=== PATIENT | male | born 1980 | race Caucasian/White ===

== ENCOUNTER 2024-07-21 12:13 | Emergency (ER) | payer BC, SELFPAY ==
--- NOTE | ~2024-07-21 | CT_ITS ---
EXAMINATION: CT ABDOMEN AND PELVIS WITHOUT CONTRAST CLINICAL INFORMATION: Right-sided abdominal pain. COMPARISON: No similar priors are available for comparison at the moment of this dictation. TECHNIQUE: Multidetector volumetric imaging was performed from the superior aspect of the liver through the pubic symphysis. Sagittal and coronal reformatted images were obtained on the technologist's workstation. This CT examination was performed using dose optimization techniques as appropriate, variously including the following: *Automated exposure control *Adjustment of mA and/or kV according to patient size (this includes techniques or standardized protocols for targeted exams where dose is matched to indication/reason for exam; i.e. extremities or head) *Use of iterative reconstruction technique DLP: 716 mGy-cm FINDINGS: The lack of intravenous contrast limits evaluation of the solid visceral organs including the liver, spleen, pancreas, and kidneys. LUNG BASES: Left lower lobe calcified granuloma. No focal consolidation or pleural effusion. LIVER, GALLBLADDER, AND BILIARY TREE: The liver is normal in size, shape, and attenuation. No focal hepatic lesion or biliary ductal dilatation is present. Cholecystectomy. PANCREAS: Unremarkable. SPLEEN: Enlarged measuring 14 cm craniocaudally. ADRENAL GLANDS: Unremarkable. KIDNEYS AND URETERS: There is a 5 mm calculus in the right ureter at the level of L4-L5 without significant upstream hydroureteronephrosis. At least 4 additional nonobstructive calculi are seen in the right kidney largest measuring 6 mm in the lower pole. Normal left kidney. BLADDER: Unremarkable. GASTROINTESTINAL TRACT: The stomach and small bowel are nondilated. Normal appendix. Colonic diverticulosis without significant pericolonic inflammatory changes. ABDOMINAL WALL: No significant hernia is appreciated. LYMPH NODES: No lymphadenopathy. VASCULAR: Normal caliber abdominal aorta. PELVIC VISCERA: Prostate gland calcifications as well as calcifications of the vas deferens, the latter that could be associated with diabetes. OSSEOUS STRUCTURES: Moderate degenerative changes L4-L5 and L5-S1. No acute or aggressive appearing osseous findings. CT/CT abdomen pelvis wo IV con IMPRESSION: 1. There is a 5 mm calculus in the right ureter at the level of L4-L5 without significant upstream hydroureteronephrosis. 2. At least 4 additional nonobstructive calculi are seen in the right kidney. 3. Splenomegaly. 4. Colonic diverticulosis without evidence of acute diverticulitis. Electronically signed by: Kate Cutler MD 07/21/2024 03:00 PM EDT
--- NOTE | 2024-07-21 12:19 | ED.ABDPAIN ---
HPI - Abdominal Pain General Chief Complaint: Abdominal Pain Stated Complaint: Ruptured appendix? sent by urgent care Time Seen by Provider: 07/21/24 12:41 Source: patient Mode of arrival: ambulatory Limitations: no limitations History of Present Illness ED Provider: DR. Espinal HPI narrative: This is a 43-year-old male came in from a walk-in urgent care for evaluation of right lower quadrant abdominal pain for 3 weeks, patient has been waning and waxing for 3 weeks, started in the right mid abdomen, feeling nauseous but no vomiting, normal bowel movement last bowel movement was this morning, passing flatus, no dysuria, no frequency urination, no blood in the urine, seen at the walk-in clinic today were concern of appendicitis /rupture appendicitis. history cholecystectomy. Related Data Previous Rx's ?Medication ?Instructions ?Recorded naproxen 500 mg tablet 500 mg PO BID PRN pain #14 tabs 07/21/24 prednisone 20 mg tablet 20 mg PO BID #10 tabs 07/21/24 tamsulosin 0.4 mg capsule (Flomax) 0.4 mg PO BEDTIME #6 caps 07/21/24 Allergies Allergy/AdvReac Type Severity Reaction Status Date / Time No Known Allergies Allergy Verified 07/21/24 12:28 Review of Systems Review of Systems All other systems are reviewed and are negative Constitutional: Reports as per HPI and Reports no additional constitutional complaints Eyes: Reports as per HPI and Reports no additional eye complaints Reports system reviewed and no additional complaints, except as documented Cardiovascular: Reports as per HPI and Reports no additional cardiovascular complaints Respiratory: Reports as per HPI and Reports no additional respiratory complaints Gastrointestinal: Reports as per HPI and Reports no additional gastrointestinal complaints Genitourinary: Reports no additional female genitourinary complaints Musculoskeletal: Reports no additional musculoskeletal complaints Skin/Breast: Reports system reviewed and no additional complaints, except as docu Psychiatric: Reports no additional psychiatric complaints Endocrine: Reports no additional endocrine complaints Hematologic/Lymphatic: Reports no additional hematologic/lymphatic complaints Allergic/Immunologic: Reports no additional allergic/immunologic complaints Reports system reviewed and no additional complaints, except as documented and Reports Abnormal speech present [facility] Social History Social History Smoked in Last 30 Days: No Use of substances other than those prescribed or required for medical reasons: No Advance Directives: No Advance Directives Information Provided: Yes Physical Exam ED Vital Signs: Vital Signs - 24 hr 07/21/24 12:24 07/21/24 14:12 Temperature 98.3 F 97.8 F Pulse Rate 78 68 Respiratory Rate 16 16 Blood Pressure 134/88 116/72 Pulse Oximetry 98 96 Oxygen Delivery Method Room Air Room Air BMI result Body Mass Index 30.3 Appearance: Alert. Oriented X3. No acute distress. Head: Normal external exam. Normocephalic. Atraumatic. No Rosa signs noted. No raccoon eyes noted Eyes: PERRLA. EOMI. Conjunctiva and sclera normal. Eyelids normal. ENT: TM's Normal. Pharynx normal. Uvula midline. Moist mucous membranes. No trismus noted. No drooling noted. No muffled voice noted. Neck: Normal inspection. Neck supple. FROM. No adenopathy. Thyroid Normal. No meningeal signs. No neck mass noted. CVS: Normal heart rate and rhythm. Heart sound normal. No murmurs noted. Pulses normal throughout. Respiratory: No respiratory distress. Painless inspiration. Breath sounds normal. No wheezes/rales/rhonchi noted. Chest nontender. No accessory muscle usage noted or decreased air movement noted. Abdomen: Soft , mild right-sided abdominal tenderness, no rebound tenderness. Bowel sounds normal in all 4 quadrants. No distention noted. No organomegaly noted. No visible injury noted. Back: mild R CVA tenderness. Full range of motion noted. Skin: Skin warm and dry. Normal skin color. Normal skin turgor. No rashes/lesions/lacerations noted. Extremities: No lower extremity edema. Extremities exhibit normal range of motion. Extremities nontender. Neuro: Oriented X 3. Cranial nerve exam: II-XII are grossly intact No motor deficit. No sensory deficit. Reflexes normal. Course Course Course Narrative: This is a Rapid Medical Examination (RME) performed by Jennifer Hickey PA-C in triage. Full HPI, ROS, assessment and treatment plan per primary provider in the Main ED. 43 yo male here from [facility] for eval of RUQ/ right flank pain x3 weeks. states that while seated at the [employer] 3 wks ago he had acute onset severe RUQ pain, nausea and diaphoresis. went home and vomited for 2 hours. since this time has had a dull aching sensation to RUQ w/ assoc nausea and decreased appetite. pain not worse w/ eating. hx of cholecystectomy 7-8 hrs ago. hx of renal stones, states this feels similar. denies fever/chills. I received an expect from UC today - [employer] reported positive mcburney point tenderness, UA negative. not tested for STIs. sent here for concern of ruptured appendix 3 wks ago. + well appearing. abd is obese, ttp of RUQ with voluntary guarding. no ttp of RLQ, no mcburney point tenderness. Plan: labs, UA, +/- imaging deferred to primary provider Reevaluation(s) Reevaluation #1: Patient has been comfortable while in the emergency department, CT abdomen and pelvis showing 5 mm right ureteric stone, will start the patient on NSAIDs, Flomax, prednisone and follow-up with urology. Time: 15:13 Medical Decision Making Differential Diagnosis Differential Diagnoses: The differential diagnosis associated with the presentation includes ( Acute appendicitis, obstructive uropathy, UTI, pyelonephritis, colitis, acute diverticulitis, electrolyte derangement, severe anemia , pancreatitis, bowel obstruction.) Admission/Observation Consideration of admission/observation: Escalation of care including admission/observation considered Lab Data MDM Lab Attestation statement: I reviewed the patient's lab results. 07/21/24 12:34 07/21/24 12:34 Labs: Lab Results 07/21/24 07/21/24 Range/Units 12:34 12:53 WBC 6.7 (4.8-10.8) X10*3/uL RBC 4.96 (4.60-5.80) X10*6/uL Hgb 15.2 (14.0-18.0) g/dl Hct 43.7 (42.0-52.0) % MCV 88.1 (80.0-98.0) fL MCH 30.6 (27.0-33.0) pg MCHC 34.8 (31.0-36.0) g/dl RDW 12.2 (11.0-16.0) % Plt Count 144 L (160-400) X10*3/uL MPV 9.1 L (9.4-12.4) fL Immature Gran % (Auto) 0.3 (0.0-0.4) % Neut % (Auto) 65.7 (45-73) % Lymph % (Auto) 22.0 (20-40) % [place] % (Auto) 8.3 (2-11) % Eos % (Auto) 3.3 (0-4) % Baso % (Auto) 0.4 (0-2) % Lymph # (Auto) 1.5 (1.2-4.9) X10*3/uL [place] # (Auto) 0.6 (0.1-1.2) X10*3/uL Eos # (Auto) 0.2 (0.0-0.4) X10*3/uL Baso # (Auto) 0.0 (0.0-0.2) X10*3/uL Abs Immat Gran (auto) 0.02 (0.00-0.03) X10*3/uL Absolute Neuts (auto) 4.4 (2.0-8.3) x10*3/uL Absolute Nucleated RBC 0.000 (0.0-0.012) X10*3/uL Nucleated RBC % (auto) 0.0 (0.0-0.2) /100WBC ESR 2 (0-15) MM/HR Sodium 143 (135-145) mmol/L Potassium 4.0 (3.3-5.1) mmol/L Chloride 110 H (96-108) mmol/L Carbon Dioxide 27 (22-29) mmol/L Anion Gap 10 L (12-20) BUN 16 (9-16) mg/dL Creatinine 0.94 (0.5-1.4) mg/dL Estim Creat Clear Calc 122.4 Estimated GFR > 60 Random Glucose 101 (60-115) mg/dL Calcium 9.3 (8.4-10.2) mg/dL Magnesium 1.9 (1.6-2.6) mg/dL Total Bilirubin 1.0 (0.0-1.0) mg/dL AST 20 (5-37) U/L ALT 22 (0-40) U/L Alkaline Phosphatase 81 (39-117) U/L C-Reactive Protein 0.17 (< or = 0.50) mg/dL Total Protein 6.0 L (6.5-8.0) g/dL Albumin 4.1 (3.5-5.0) g/dL Lipase 35 (8-78) U/L Urine Color Yellow Urine Appearance Clear Urine pH 6.0 (5.0-9.0) Ur Specific Viola >= 1.030 H (1.005-1.025) Urine Protein Negative (Neg-Trace) mg/dL Urine Glucose (UA) Negative (Negative) mg/dL Urine Ketones Negative (Negative) mg/dL Urine Blood Negative (Negative) Urine Nitrite Negative (Negative) Ur Leukocyte Esterase Negative (Negative) Independent Interpretation I performed an independent interpretation of an: CT Scan (1. There is a 5 mm calculus in the right ureter at the level of L4-L5 without significant upstream hydroureteronephrosis. 2. At least 4 additional nonobstructive calculi are seen in the right kidney. 3. Splenomegaly. 4. Colonic diverticulosis without evidence of acute diverticulitis. ) Radiology Impression Discussion of test interpretation with radiology: I have reviewed the radiologist's reading. Discharge Plan Discharge Clinical Impression: Right ureteral stone Patient Disposition: Home, Self-Care Instructions: Ureteral Stones (ED) Prescriptions: New naproxen 500 mg tablet 500 mg PO BID PRN (Reason: pain) Qty: 14 0RF tamsulosin [Flomax] 0.4 mg capsule 0.4 mg PO BEDTIME Qty: 6 0RF prednisone 20 mg tablet 20 mg PO BID Qty: 10 0RF Referrals: David Guadarrama MD [Physician] - Leslie Lomeli MD [Primary Care Provider] - Print Language: [place] Citizen
[2024-07-21 12:24] VITALS: BP 134/88; PULSE 78; RESP 16; TEMP 36.8; O2SAT 98; BMI 30.3
[2024-07-21 12:38] LABS: MANUAL DIFF FLAG NO
[2024-07-21 12:40] LABS: Basophils Percent Auto 0.4 % (0-2); Eosinophils Absolute Auto 0.2 X10*3/uL (0.0-0.4); Eosinophils Percent Auto 3.3 % (0-4); Hematocrit 43.7 % (42.0-52.0); Hemoglobin 15.2 g/dl (14.0-18.0); Imm Gran Abs Auto 0.02 X10*3/uL (0.00-0.03); Imm Gran Pct Auto 0.3 % (0.0-0.4); Lymphocytes Absolute Auto 1.5 X10*3/uL (1.2-4.9); Mean Corpuscular HGB Conc 34.8 g/dl (31.0-36.0); Mean Corpuscular Hemoglobin 30.6 pg (27.0-33.0); Mean Corpuscular Volume 88.1 fL (80.0-98.0); Mean Platelet Volume 9.1 fL (9.4-12.4); Monocytes Absolute Auto 0.6 X10*3/uL (0.1-1.2); Monocytes Percent Auto 8.3 % (2-11); Neutrophils Absolute Auto 4.4 x10*3/uL (2.0-8.3); Neutrophils Percent Auto 65.7 % (45-73); Platelet Count 144 X10*3/uL (160-400); Red Blood Count 4.96 X10*6/uL (4.60-5.80); Red Cell Distribution Width 12.2 % (11.0-16.0); White Blood Count 6.7 X10*3/uL (4.8-10.8)
[2024-07-21 12:52] LABS: Alanine Aminotransferase 22 U/L (0-40); Albumin Level 4.1 g/dL (3.5-5.0); Alkaline Phosphatase 81 U/L (39-117); Anion Gap 10 (12-20); Aspartate Amino Transferase 20 U/L (5-37); Blood Urea Nitrogen 16 mg/dL (9-16); C Reactive Protein 0.17 mg/dL (< or = 0.50); Calcium 9.3 mg/dL (8.4-10.2); Carbon Dioxide 27 mmol/L (22-29); Chloride 110 mmol/L (96-108); Creatinine Clr Calc Pharmacy 122.4; Estimated Glomerular Filt Rate > 60; Glucose Random 101 mg/dL (60-115); Lipase 35 U/L (8-78); Magnesium 1.9 mg/dL (1.6-2.6); Sodium 143 mmol/L (135-145)
[2024-07-21 12:59] LABS: Appearance Urine Clear; Color Urine Yellow; Glucose Urine UA Negative (Negative); Leukocyte Esterase Urine Negative (Negative); Nitrite Urine Negative (Negative); Specific Gravity - Urine >= 1.030 (1.005-1.025); Urine Blood Negative (Negative); Urine Ketones Negative (Negative); Urine Protein Negative (Neg-Trace)
[2024-07-21 13:19] LABS: Erythrocyte Sedimentation Rate 2 MM/HR (0-15)
[2024-07-21 14:12] VITALS: BP 116/72; PULSE 68; RESP 16; TEMP 36.6; O2SAT 96
[2024-07-21 15:36] VITALS: BP 142/78; PULSE 76; RESP 17; TEMP 36.6; O2SAT 8
== END 2024-07-21 15:37 | disposition home or self-care (01) ==
PROVIDERS: Physician Assistant Medical; Emergency Provider Emergency Medicine; PCP Internal Medicine
DX: R10.31 Right lower quadrant pain (principal); R11.0 Nausea; Z79.899 Other long term (current) drug therapy
CPT/HCPCS: 36415; 74176; 80053; 81003; 83690; 83735; 85025; 85652; 86140; 99284

== ENCOUNTER 2024-09-11 09:01 | Outpatient (AMB) | payer BC, SELFPAY ==
--- NOTE | 2024-09-11 09:03 | A.OFFVIS_ITS ---
Intake Visit Reasons: kidney stones Intake Note: New Patient presents for initial visit for kidney stones Urology Medications: none Blood Thinner: none Print Line Operator Required: No Accompanied by: Self / Same As Patient Allergies No Known Allergies Allergy (Verified 09/11/24 09:28) Medication List - Last Reconciled 09/11/24 by HAWK Galindo fexofenadine (Ghada Allergy) 180 mg PO DAILY HPI Comments Details: Pawel is a very pleasant 43-year-old male patient of Dr. Lomeli. He has a past medical history of allergies. He presents to the office today as a new patient for nephrolithiasis. In discussion with the patient today he reports having seeked emergency room care services a proximally 2 months ago for right-sided abdominal pain he had been experiencing at which time a CT was ordered and recommendations were made for urology referral for further assessment evaluation. These results were reviewed with the patient today. CT 07/25 there is a 5 mm calculus in the right ureter at the level of L4-L5 without significant upstream hydroureteronephrosis. At least 4 additional nonobstructive calculi are seen in the right kidney largest measuring 6 mm in the lower pole. Normal left kidney. The bladder is unremarkable. When asked he does report a previous history of nephrolithiasis in the past however never requiring surgical intervention. When asked he otherwise denies any bothersome urinary issues. He denies urinary urgency, urinary frequency, incontinence, nocturia, hematuria, dysuria, foul smelling urine, changes to urinary stream, flank pain, fever, and or chills. He is happy with his current voiding parameters. He reports sharp pain he had been experiencing has subsided however he does continue with intermittent right-sided flank pain. He is on sure as to if he passed stone and or fragments. We discussed obtaining further imaging for further assessment evaluation. In office urinalysis results reviewed with the patient today. 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 He otherwise offers no other issues or concerns at this time. Review of Systems Const All systems reviewed & are unremarkable except as noted in HPI and below Physical Exam Const General: cooperative, healthy appearing, comfortable, no acute distress, well developed, alert and awake Orientation/consciousness: patient oriented x3 Limitations: no limitations HEENT Head: Yes normal to inspection, Yes normocephalic and Yes atraumatic Ears: hearing grossly normal bilaterally Eyes General: appearance normal, both eyes and all related structures Neck Neck: Yes normal visual inspection and Yes trachea midline Chest Chest palpation & inspection: normal inspection of the chest Resp Effort & Inspection: normal respiratory effort and able to speak in complete sentences Cardio Rate: regular rate GI Inspection: Yes normal to inspection General: Yes no CVA tenderness Back/Spine/Pelvis Back: no CVA tenderness Skin General skin exam: no rashes or lesions noted Neuro General: patient oriented x3 Extrem General: Yes normal to inspection Psych Appearance: grossly normal and well kempt Mental Status: mental status grossly normal Speech and movement: Normal speech and movement present and Clear speech present Affect: normal affect Attitude: cooperative Thought process: Normal thought process present Thought content: Normal thought content present Insight: Fair insight present (Psych) Judgement: Fair judgement present (Psych) Results AMB Urinalysis, Automated UA Leukoctes 0 John/uL Last Edit by [employer] on 09/11/24 09:15 UA Nitrite Last Edit by [employer] on 09/11/24 09:15 UA Urobilinogen 0.2 mg/dL Last Edit by [employer] on 09/11/24 09:15 UA Protein 0 mg/dL Last Edit by [employer] on 09/11/24 09:15 UA pH 6.0 Last Edit by [employer] on 09/11/24 09:15 UA Blood 0 Parker/uL Last Edit by [employer] on 09/11/24 09:15 UA Specific [place] 1.015 Last Edit by [employer] on 09/11/24 09:15 UA Ketone Negative Last Edit by [employer] on 09/11/24 09:15 UA Bilirubin 0 mg/dL Last Edit by [employer] on 09/11/24 09:15 UA Glucose 0 mg/dL Last Edit by Jaelyn Osullivan on 09/11/24 09:15 Results Reviewed Results Reviewed: Laboratory Last Values Urine pH (Auto) 6.0 09/11/24 09:09 Specific [place] (Auto) 1.015 09/11/24 09:09 Urine Protein (Auto) 0 mg/dL 09/11/24 09:09 Glucose (UA)(Auto) 0 mg/dL 09/11/24 09:09 Urine Ketones (Auto) Negative 09/11/24 09:09 Urine Blood (Auto) 0 Parker/uL 09/11/24 09:09 Urine Bilirubin (Auto) 0 mg/dL 09/11/24 09:09 Urine Urobilinogen (Auto) 0.2 mg/dL 09/11/24 09:09 Leukocyte Esterase (Auto) 0 John/uL 09/11/24 09:09 Date of Service: 07/21/24 EXAMINATION: CT ABDOMEN AND PELVIS WITHOUT CONTRAST LUNG BASES: Left lower lobe calcified granuloma. No focal consolidation or pleural effusion. LIVER, GALLBLADDER, AND BILIARY TREE: The liver is normal in size, shape, and attenuation. No focal hepatic lesion or biliary ductal dilatation is present. Cholecystectomy. PANCREAS: Unremarkable. SPLEEN: Enlarged measuring 14 cm craniocaudally. ADRENAL GLANDS: Unremarkable. KIDNEYS AND URETERS: There is a 5 mm calculus in the right ureter at the level of L4-L5 without significant upstream hydroureteronephrosis. At least 4 additional nonobstructive calculi are seen in the right kidney largest measuring 6 mm in the lower pole. Normal left kidney. BLADDER: Unremarkable. GASTROINTESTINAL TRACT: The stomach and small bowel are nondilated. Normal appendix. Colonic diverticulosis without significant pericolonic inflammatory changes. ABDOMINAL WALL: No significant hernia is appreciated. LYMPH NODES: No lymphadenopathy. VASCULAR: Normal caliber abdominal aorta. PELVIC VISCERA: Prostate gland calcifications as well as calcifications of the vas deferens, the latter that could be associated with diabetes. OSSEOUS STRUCTURES: Moderate degenerative changes L4-L5 and L5-S1. No acute or aggressive appearing osseous findings. IMPRESSION: 1. There is a 5 mm calculus in the right ureter at the level of L4-L5 without significant upstream hydroureteronephrosis. 2. At least 4 additional nonobstructive calculi are seen in the right kidney. 3. Splenomegaly. 4. Colonic diverticulosis without evidence of acute diverticulitis. Assessment & Plan Assessment & Plan (1) Nephrolithiasis: Code(s): N20.0 - Calculus of kidney Category: Medical (2) Flank pain: Code(s): R10.9 - Unspecified abdominal pain Category: Medical Plan Previous CT results reviewed with the patient today; as noted above. We discussed obtaining repeat CT kidney stone given patient's symptoms. Patient currently denies any bothersome urinary issues. He reports be happy with current voiding parameters. Discussed, educated, and stressed the importance of adequate hydration relation to nephrolithiasis as well as overall health and well-being. Discussed adding 1 oz of lemon juice to water daily. Discussed potential causes of nephrolithiasis. Follow-up in 2-4 weeks with imaging to be completed prior; or sooner with any issues, concerns, and or questions. Orders: Orders CT kidney stone Today N20.0 - Calculus of kidney AMB Urinalysis Automated Today Z13.9 - Encounter for screening, unspecified Patient Instructions: The patient had an opportunity to ask questions regarding the treatment plan. All questions were answered. Physical exam, labs, and imaging were discussed and reviewed in detail. As well as risks, benefits, and discussion of treatment choices. No major barriers to understanding were identified. The patient expressed understanding and agreement with the above treatment plan. The patient was made aware they should contact our office by phone for worsening of their current condition, the appearance of new symptoms, or with any questions or concerns. Compliance is encouraged with any medications and follow up testing that is ordered. It is a privilege to be allowed the opportunity to participate in? your urological care.? Again, if you have any questions or concerns If you have any questions or concerns please do not hesitate to contact me. The office is [phone]. This note is constructed using voice recognition software. While every effort has been made to ensure accuracy animal assisted therapist errors may have been included. Yours sincerely, HAWK Galindo Coding Level of Care Code New Pt Level 3 (82776) Diagnoses Nephrolithiasis N20.0 Flank pain R10.9
== END 2024-09-11 09:29 | disposition home or self-care (01) ==
PROVIDERS: PCP Internal Medicine; Visit Provider Nurse Practitioner Family
DX: N20.0 Calculus of kidney (principal); R10.9 Unspecified abdominal pain; Z13.9 Encounter for screening, unspecified
CPT/HCPCS: 99203

== ENCOUNTER → 2024-09-11 09:01 | Outpatient (BNVA) | payer BC, SELFPAY | PROVIDERS: PCP Internal Medicine; Visit Provider Nurse Practitioner Family | DX: N20.0 Calculus of kidney (principal); R10.9 Unspecified abdominal pain | CPT/HCPCS: 81003 ==

== ENCOUNTER 2024-10-22 07:42 | Outpatient (REF) | payer BC, SELFPAY ==
--- NOTE | ~2024-10-22 | CT_ITS ---
EXAMINATION: CT ABDOMEN PELVIS WITHOUT IV CONTRAST HISTORY: N20.0 - Calculus of kidney COMPARISON: Comparison is made with the prior examination dated 07/21/2024. TECHNIQUE: CT scan of the abdomen and pelvis was performed without contrast using standard departmental protocol. Coronal and sagittal reformatted images were generated and reviewed. Oral contrast material was not administered per department protocol. This CT exam was performed with one or more of the following dose reduction techniques: automated exposure control, adjustment of the mA and/or kV according to patient size, use of iterative reconstruction technique. DLP: 716 mGy-cm FINDINGS: LOWER CHEST: The visualized lung bases are clear. There is no pleural effusion. CARDIOVASCULATURE: The heart is normal in size. There is no pericardial effusion. LIVER: The liver is normal in size and contour. The liver has an unremarkable unenhanced appearance. GALLBLADDER / BILE DUCTS: The gallbladder is surgically absent. There is no intra or extrahepatic biliary ductal dilatation. SPLEEN: The spleen is normal in size and has an unremarkable unenhanced appearance. PANCREAS: The pancreas has an unremarkable unenhanced appearance. ADRENAL GLANDS: Unremarkable. KIDNEYS/RETROPERITONEUM: There is a 3 mm calculus in the interpolar region of the right kidney and 2 additional 3 mm calculi at the lower pole. There is no hydronephrosis or hydroureter. However, there is a 4 mm calculus in the distal ureter approximately 2 cm above the UVJ (series 3, image 73). No left renal or ureteral calculi are identified. There is no left hydronephrosis or hydroureter. LYMPH NODES: No retroperitoneal lymphadenopathy is identified in the abdomen or pelvis. VASCULATURE: The abdominal aorta is normal in caliber. MESENTERY/PERITONEUM: No free fluid. No masses. There is no free intraperitoneal gas. STOMACH: The stomach is collapsed, limiting evaluation. SMALL BOWEL: The small bowel is normal in caliber. COLON: There is a large amount of stool throughout the colon. There is diverticulosis of the descending and sigmoid colon, without evidence of diverticulitis. APPENDIX: Normal. URINARY BLADDER/PELVIC ORGANS: The urinary bladder is collapsed, limiting evaluation. The prostate is normal in size. BONES / SOFT TISSUES: No suspicious bony or soft tissue abnormalities. CT/CT kidney stone IMPRESSION: Right nephrolithiasis as described. 5 mm distal right ureteral calculus without hydroureteronephrosis. Electronically signed by: Salinas Patrick MD 10/22/2024 08:18 AM GREG
== END 2024-10-22 07:43 | disposition home or self-care (01) ==
LOC: HO.CT 07:42
PROVIDERS: PCP Internal Medicine; Visit Provider Nurse Practitioner Family
DX: N20.0 Calculus of kidney (principal)
CPT/HCPCS: 74176

== ENCOUNTER → 2024-10-22 07:44 | Outpatient (BNV) | payer BC, SELFPAY | PROVIDERS: PCP Internal Medicine; Visit Provider Radiology Diagnostic Radiology | DX: N20.2 Calculus of kidney with calculus of ureter (principal) | CPT/HCPCS: 74176 ==

== ENCOUNTER 2024-10-22 11:14 | Outpatient (AMB) | payer BC, SELFPAY ==
--- NOTE | 2024-10-22 11:14 | A.OFFVIS_ITS ---
Intake Visit Reasons: Followup ct scan Intake Note: Patient presents today for follow up on: kidney stones and ct scan results * Imaging Completed: 10/22/24 Urology Medications: none Blood Thinner: none Ratoprinter Required: No Accompanied by: Self / Same As Patient Allergies No Known Allergies Allergy (Verified 09/11/24 09:28) Medication List - Last Reconciled 10/22/24 by JACK Galindo fexofenadine (Ghada Allergy) 180 mg PO DAILY HPI Comments Details: Pawel is a very pleasant 43-year-old male patient of Dr. Lomeli. He has a past medical history of allergies. He is being followed up on today via video telehealth. Of note, patient was seen approximately 1 month ago as a new patient for nephrolithiasis at which time a CT was ordered for further assessment evaluation. These results were reviewed with the patient today. 10/26 right nephrolithiasis 5 mm distal right ureteral calculus without hydroureteronephrosis is noted. In discussion with the patient today he continues to report ongoing intermittent right-sided flank pain. We discussed further intervention to include ureteroscopy as obstructing stone has been present since CT 07/2024. We discussed risks and benefits of ureteroscopy verses surveillance monitoring. He does report a previous history of nephrolithiasis in the past however never requiring surgical intervention. He otherwise denies any bothersome urinary issues. He denies urinary urgency, urinary frequency, incontinence, nocturia, hematuria, dysuria, foul smelling urine, changes to urinary stream, flank pain, fever, and or chills. He is happy with his current voiding parameters. We discussed importance of hydration relation to neph rolithiasis. He otherwise offers no other issues or concerns at this time. Review of Systems Const All systems reviewed & are unremarkable except as noted in HPI and below Physical Exam Const General: cooperative, healthy appearing, comfortable, no acute distress, well developed, alert and awake Orientation/consciousness: patient oriented x3 Resp Effort & Inspection: normal respiratory effort and able to speak in complete sentences Neuro General: patient oriented x3 Psych Appearance: grossly normal and well kempt Mental Status: mental status grossly normal Speech and movement: Clear speech present Affect: normal affect Attitude: cooperative Thought process: Normal thought process present Thought content: Normal thought content present Insight: Fair insight present (Psych) Judgement: Fair judgement present (Psych) Telehealth Telehealth Telehealth Platform: [employer] Location of provider rendering services: practice address Location of patient: address on file Patient Identification confirmed using: Name, : Yes Telehealth method: video Patient verbally consented to treatment: Yes Patient verbally consented to billing insurance company: Yes Patient informed of any privacy concerns related to visit: Yes Minutes spent on Phone/Video with Pt.: 20 Results Reviewed Results Reviewed: Date of Service: 10/22/24 Procedure(s): CT kidney stone FINDINGS: LOWER CHEST: The visualized lung bases are clear. There is no pleural effusion. CARDIOVASCULATURE: The heart is normal in size. There is no pericardial effusion. LIVER: The liver is normal in size and contour. The liver has an unremarkable unenhanced appearance. GALLBLADDER / BILE DUCTS: The gallbladder is surgically absent. There is no intra or extrahepatic biliary ductal dilatation. SPLEEN: The spleen is normal in size and has an unremarkable unenhanced appearance. PANCREAS: The pancreas has an unremarkable unenhanced appearance. ADRENAL GLANDS: Unremarkable. KIDNEYS/RETROPERITONEUM: There is a 3 mm calculus in the interpolar region of the right kidney and 2 additional 3 mm calculi at the lower pole. There is no hydronephrosis or hydroureter. However, there is a 4 mm calculus in the distal ureter approximately 2 cm above the UVJ (series 3, image 73). No left renal or ureteral calculi are identified. There is no left hydronephrosis or hydroureter. LYMPH NODES: No retroperitoneal lymphadenopathy is identified in the abdomen or pelvis. VASCULATURE: The abdominal aorta is normal in caliber. MESENTERY/PERITONEUM: No free fluid. No masses. There is no free intraperitoneal gas. STOMACH: The stomach is collapsed, limiting evaluation. SMALL BOWEL: The small bowel is normal in caliber. COLON: There is a large amount of stool throughout the colon. There is diverticulosis of the descending and sigmoid colon, without evidence of diverticulitis. APPENDIX: Normal. URINARY BLADDER/PELVIC ORGANS: The urinary bladder is collapsed, limiting evaluation. The prostate is normal in size. BONES / SOFT TISSUES: No suspicious bony or soft tissue abnormalities. IMPRESSION: Right nephrolithiasis as described. 5 mm distal right ureteral calculus without hydroureteronephrosis. Assessment & Plan Assessment & Plan (1) Nephrolithiasis: Code(s): N20.0 - Calculus of kidney Category: Medical (2) Flank pain: Code(s): R10.9 - Unspecified abdominal pain Category: Medical Plan: Ureteroscopy We discussed the nature of the decision and reasonable alternatives for performing ureteroscopy. Options such as medical therapy were discussed. Interventions include chemical dissolution, ESWL, ureteroscopy with laser lithotripsy and stent placement, PCNL. The relative uncertainties and benefits related to each alternate procedure were adequately discussed. General surgical risks including, but not limited to - pain, bleeding, infection, myocardial infarction, pulmonary embolus, deep vein thrombosis and cerebrovascular accident which may result in further hospitalization were discussed.? Full disclosure of the procedure as well as all major risks, benefits and complications were discussed including but not limited to damage to the urethra, bladder and kidney infection, damage to the ureter, stent migration or malposition, scarring to the renal pelvis, remnant stone fragments, subsequent stone passage with need for secondary procedures. The overall secondary procedure rate is approximately 10-15%.? The overall clearance rate is approximately 90-95%. Success of the procedure in the short-term does not necessarily guarantee that long-term success will be maintained. Suitable follow up will need to be maintained. The patient showed understanding of discussion and wishes to proceed with - cystoscopy, retrograde, ureteroscopy, possible lithotripsy/stone basketing and stent on the right side Plan Recent CT results reviewed with the patient today; as noted above. We discussed ureteroscopy; risks and benefits of this intervention. All questions were answered Patient continues with intermittent right-sided flank pain. He otherwise denies any bothersome urinary issues or concerns. He reports be happy with current voiding parameters. Will schedule for - cystoscopy, retrograde, ureteroscopy, possible lithotripsy/stone basketing and stent on the right side as discussed. Follow-up per doctor's orders; or sooner with any issues, concerns, and or questions. Medications: New tramadol 50 mg PO Q8H PRN 15 tabs 0RF pain 5 days N43.3 - Hydrocele, unspecified Patient Instructions: The patient had an opportunity to ask questions regarding the treatment plan. All questions were answered. Physical exam, labs, and imaging were discussed and reviewed in detail. As well as risks, benefits, and discussion of treatment choices. No major barriers to understanding were identified. The patient expressed understanding and agreement with the above treatment plan. The patient was made aware they should contact our office by phone for worsening of their current condition, the appearance of new symptoms, or with any questions or concerns. Compliance is encouraged with any medications and follow up testing that is ordered. It is a privilege to be allowed the opportunity to p articipate in? your urological care.? Again, if you have any questions or concerns If you have any questions or concerns please do not hesitate to contact me. The office is [phone]. This note is constructed using voice recognition software. While every effort has been made to ensure accuracy book or script editor errors may have been included. Yours sincerely, HAWK Galindo Coding Level of Care Code Tele Est Pt Level 4 (87660) Diagnoses Nephrolithiasis N20.0 Flank pain R10.9
--- OUTSIDE RECORDS SUMMARY | 2024-10-22 12:57 | XMS_ITS | Clinical Summary ---
Author Organization [facility] it Address [address] [place] [address] Care Team Providers Care Energy Analyst Name Role Phone Leslie Lomeli MD Primary Care Provider [phone] Allergies No known active allergies Medications Medication Sig Dispensed Refills Start Date End Date Status fexofenadine (JUAN FRANCISCO) 60 mg tablet Take 60 mg by mouth daily. Active Active Problems Problem Noted Date Diagnosed Date Asthma, well controlled 09/20/2024 Overview (09/20/2024): Well controlled, not on any controller. 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 Feedback (Insurance referral to Niki Reid ([facility])) from Last 3 Months Immunizations Name Administration Dates Next Due Influenza trivalent, 0.5mL, preservative free (Fluarix; FluLaval; Fluzone) ages 6mo and older (Afluria) 3 years and older 06/14/2013,09/05/2012 Tdap Tetanus diptheria acell ular pertussis (Boostrix; Adacel) 7yo and older 06/11/2008 Surgical History Surgery Date Site/Laterality Comments CHOLECYSTECTOMY 03/14 PROCEDURE: HISTORICAL CHOLECYSTECTOMY Medical History Medical History Date Comments Asthma, mild intermittent, well-controlled DX:Asthma, mild intermittent , well-controlled GERD (gastroesophageal reflu x disease) 01/21/2011 DX:GERD (gastroesophageal re flux disease); COMMENT: No reflux after cholecystectomy Chronic cholecystitis 01/25/2013 DX:Chronic cholecystitis; COMMENT: S/p cholecystectomy 03/08/2013 Family History Medical History Relation Name Comments Other: DJD Mother knee replacemen t Other: kidney removed, not cancer Mother Relation Name Status Comments Father Alive Healthy Mother Alive DM II Social History Tobacco Use Types Packs/Day Years Used Date Smoking Tobacco: Never Smokeless Tobacco: Never Alcohol Use Standard Drinks/Week Comments No 0 (1 standard drink = 0.6 oz pur e alcohol) Sex and Gender Information Value Date Recorded Sex Assigned at Not on file Gender Identity Not on file Sexual Orientation Not on file Obstetrics History Plan of Treatment Health Maintenance Due Date Last Done Comments Pneumococcal Vaccine: Pediatrics (0 to 5 Years) and At-Risk Patients (6 to 64 Years) (1 of 2 - PCV) 1987 Hepatitis B Vaccines (1 of 3 - 19+ 3-dose series) 2000 DTaP,Tdap,and Td Vaccines (2 - Td or Tdap) 06/11/2018 06/11/2008 COVID-19 Vaccine (2023-2 5 season) 2024 Influenza Vaccine (#1) 2024 3, 09/05/2012 Cholesterol Screening (Lipid Panel) 07/24/2024 09/09/2013 Depression Screening 07/24/2024 HIV Screening 07/24/2024 Hepatitis C Screening 07/24/2024 Social Influencers of Health Screening 07/24/2024 HIB Vaccines Aged Out No longer eligi ble based on patient's age to complete this topic HPV Vaccines Aged Out No longer eligi ble based on patient's age to complete this topic Hepatitis A Vaccines Aged Out No long er eligible based on patient's age to complete this topic IPV Vaccines Aged Out No longer eligi ble based on patient's age to complete this topic MMR Vaccines Aged Out No longer eligi ble based on patient's age to complete this topic Meningococcal ACWY Vaccine Aged Out N o longer eligible based on patient's age to complete this topic RSV Immunization Patients Under 20 months Aged Out No longer eligible b ased on patient's age to complete this topic Varicella Vaccines Aged Out No longer eligible based on patient's age to complete this topic Procedures Procedure Name Priority Date/Time Associated Diagnosis Comments LIPID PANEL Routine 09/09/2013 from Last 3 Months or Most Recently Relevant to Health Maintenance Results * (ABNORMAL) Lipid panel (09/09/2013) LDL/HDL Ratio 4 0 - 4 Triglycerides 156(A) 0 - 150 mg/dL Cholesterol 142 0 - 200 mg/dL HDL 34(A) 40 mg/dL LDL Cholesterol 77 0 - 100 mg/dL Blood Venous blood specimen / Unknown Historical Provider LAB BLOOD ORDERAB LES from Last 3 Months or Most Recently Relevant to Health Maintenance Care Teams Energy Analyst Relationship Specialty Start Date End Date Leslie Lomeli MD [address] [place] [address] PCP - General Internal Medicine 08/24/12
== END 2024-10-22 12:55 | disposition home or self-care (01) ==
LOC: HO.HUSH 11:14
PROVIDERS: PCP Internal Medicine; Visit Provider Nurse Practitioner Family
DX: N20.0 Calculus of kidney (principal); R10.9 Unspecified abdominal pain
CPT/HCPCS: 99214

== ENCOUNTER 2024-11-12 06:00 | Day surgery (SDC) | payer BC, SELFPAY ==
--- NOTE | 2024-11-11 13:41 | HO.ANESPROP2 ---
Documented by User: Lore March NP 11/11/24 13:41 HPI - Anesthesia Eval Consult details Narrative: 43yo M for Right Cystoscopy, Ureteroroscopy, Retro, Laser with stent placement PMFSH Active Problems Active Problems: All Active Problems Flank pain (Acute) Nephrolithiasis (Acute) Past Medical History Medical History Right kidney stone Surgical History Surgical History History of cholecystectomy Social History Social History Are you a primary long term acute care registered nurse to a significant other at home: No Do you presently have visiting nurse or other home services: No Patient Tobacco Use Status: Never used Tobacco Second Hand Smoke Exposure: No Use of substances other than those prescribed or required for medical reasons: No Have you been hit, kicked, punched, or otherwise hurt by someone within the past year? If so, by whom?: No Are you DNR?: No Advance Directives: No Advance Directives Information Provided: Yes Advance Directives on File: No Recently lost weight without trying: No Eating poorly because of decreased appetite: No Nutrition Risks: No Nutritional Risk Poor oral hygiene: No Meds Allergies Allergy/AdvReac Type Severity Reaction Status Date / Time No Known Allergies Allergy Verified 09/11/24 09:28 Home Medications ?Medication ?Instructions ?Recorded ?Confirmed ?Last Taken ?Type fexofenadine 180 mg tablet 180 mg PO DAILY 09/11/24 11/12/24 11/11/24 History (Ghada Allergy) Exam Pertinent Lab Results Pertinent Lab Results: Laboratory Tests 07/21/24 12:34 WBC 6.7 Hgb 15.2 Hct 43.7 Plt Count 144 L Sodium 143 Potassium 4.0 Chloride 110 H Carbon Dioxide 27 BUN 16 Creatinine 0.94 Assessment and Plan Assessment Anesthesia Assessment: Chart Reviewed Documented by User: Tanisha Russ MD 11/12/24 08:05 [facility] Active Problems Active Problems: All Active Problems Flank pain (Acute) Nephrolithiasis (Acute) Increased BMI. Denies ANA MARIA Past Medical History Medical History Right kidney stone Family History Family history of problems with anesthesia: No Surgical History Surgical History History of cholecystectomy History of Problems with Anesthesia: No Social History Social History Are you a primary long term acute care registered nurse to a significant other at home: No Do you presently have visiting nurse or other home services: No Patient Tobacco Use Status: Never used Tobacco Second Hand Smoke Exposure: No Use of substances other than those prescribed or required for medical reasons: No Have you been hit, kicked, punched, or otherwise hurt by someone within the past year? If so, by whom?: No Are you DNR?: No Advance Directives: No Advance Directives Information Provided: Yes Advance Directives on File: No Recently lost weight without trying: No Eating poorly because of decreased appetite: No Nutrition Risks: No Nutritional Risk Poor oral hygiene: No Meds Allergies Allergy/AdvReac Type Severity Reaction Status Date / Time No Known Allergies Allergy Verified 09/11/24 09:28 Home Medications ?Medication ?Instructions ?Recorded ?Confirmed ?Last Taken ?Type fexofenadine 180 mg tablet 180 mg PO DAILY 09/11/24 11/12/24 11/11/24 History (Ghada Allergy) Exam Height,Weight and Vital Signs: Height 5 ft 11 in Weight 106.4 kg Vital Signs Temp Pulse Resp BP Pulse Ox O2 Del Method 11/12/24 06:59 98.5 F 93 16 116/81 98 Room Air Airway Mallampati Class: III (Small mouth) TM Dist: >3cm Neck ROM: Full Loose/Missing/Broken Teeth: Yes (Chipped tooth top front. Denies loose or missing teeth) Heart: RRR Lungs: CTAB Assessment and Plan Assessment Anesthesia Assessment: Anesthesia Plan Discussed and Chart Reviewed Final Anesthetic Review Family History of Problems with Anesthesia: No History of Problems with Anesthesia: No NPO: Yes ASA Class: II Final Preanesthetic Review: No Changes in Pt Med Stat, Meds/Allgs Chart Reviewed, Consent Obtained/Reviewed and Anes Risks/Benef Reviewed Patient Risk: Low Procedure Risk: Low Assessment/Block/Sedation in SS: Assess/Block/Sedation-SS Anesthetic Plan Anesthetic Plan: GA Disposition: Standard PACU
[2024-11-12] VITALS (7 sets, daily range): BP systolic 110–164; BP diastolic 70–111; PULSE 87–96; RESP 15–17; TEMP 36.9–37.1; O2SAT 95–98; BMI 32.7
--- NOTE | ~2024-11-12 | FL_ITS ---
EXAMINATION: FL GUIDANCE ONLY HISTORY: right cystoscopy, ureteroscopy, retro, laser with COMPARISON: Correlation is made with a CT of the abdomen and pelvis dated 10/22/2024. TECHNIQUE: Fluoroscopy time: 29.7 seconds. Cumulative Dose: 12.44 mGy. Images: 5. FINDINGS: Images demonstrate opacification of the distal right ureter. There is a probable filling defect within the ureter consistent with the calculus noted on CT. The final images demonstrate a nephroureteral stent in place. FL/FL guidance in OR IMPRESSION: Fluoroscopy during procedure. Please see procedure report for additional information. Electronically signed by: Salinas Patrick MD 11/12/2024 09:53 AM GREG
[2024-11-12] MEDS: Lactated Ringers 1,000 ML 100 ML IVCONT (07:00)
--- NOTE | 2024-11-12 07:26 | MHC.SHP ---
Pre-Procedural Eval Section A - 24 Hr Update-Section A only Date of Service: 11/12/24 The patient is an INPATIENT: No The patient has been examined within 24 hours of the surgical procedure. The History & Physical has been completed within 30 days and I have reviewed it.: Yes Section B - Complete if H&P > 30 days Chief Complaint: Calculus of kidney Allergies: Allergies Allergy/AdvReac Type Severity Reaction Status Date / Time No Known Allergies Allergy Verified 09/11/24 09:28 Plan Diagnosis/Plan: Unchanged I have reviewed the history and physical and performed a pertinent physical examination on my patient. No changes have occurred unless specified. Plan for Cystoscopy, right ureteroscopy, possible laser lithotripsy, possible ureteral stent. Risks discussed included but not limited to, possible need to repeat procedure if stone is not completely fragmented, Irritative voiding symptoms, bladder spasms, urgency, blood in urine. Time Spent With Patient Time: Total time managing care of this patient today ____ minutes.
--- NOTE | 2024-11-12 09:01 | P.OP_ITS ---
Operative Note Operative Note Date of Service: 11/12/24 Narrative: PreOperative Diagnosis:?? Right ureteral stone Post Operative Diagnosis:?? Right ureteral stone Procedure: - Cystoscopy, right retrograde, right ureteroscopy laser lithotripsy stent insertion, 6 Gambian by 22-32 cm Surgeon:?Dr Andrzej White Anesthesia:? General Procedure: After informed consent was verified the patient was brought to the operating placed on the OR table in supine position.? General Anesthesia was administered per protocol.? The patient was placed in lithotomy position, prepped and draped in the usual sterile fashion.? Safety pause time-out and side of surgery confirmed.? Antibiotics confirmed. 2% lidocaine jelly 10 mL was passed transurethrally. A 22 Gambian cystoscope was inserted transurethrally, the bulbous urethra was within normal limits. The prostatic urethra noted high rising median lobe. The bladder was visualized.? Both ureteric orifices were in normal position. An open-ended ureteral catheter was passed into the right ureteral orifice and a retrograde examination was performed. There was a filling defect in the distal ureter and dilatation of the ureter proximal to the stone. A guidewire was passed through the ureteral catheter into the kidney. The balloon dilator size 12 fr x 4 cm was passed over the guide-wire the balloon was inflated to 8 mmHg and the intramural ureter was dilated for 45 seconds. The balloon was deflated and removed. After removing the balloon dilator. The cystoscope was removed, leaving the guidewire in place. The guidewire was used as the safety and was attached to the draping. The semi rigid ureteroscope was passed transurethrally to level of the stone in the ureter. Laser lithotripsy of the stone was done using the 365 fiber with a pulsating setting 0.6 J x 5 H. There was good fragmentation of the stone. The 0 degree basket was passed through the ureteroscope, stone fragment(s) removed and sent for analysis. The ureteroscope was removed. The cystoscope was passed over the safety guidewire. A?6 Gambian by 22-32 cm stent was placed into the ureter and renal pelvis under a combination of fluoroscopy and direct visualization. The bladder was emptied.? The rigid cystoscope was removed. ? Belladonna placed per rectum. The patient tolerated the procedure well and was brought to the recovery room in stable condition. Complications: None Drains: Ureteral stent as dictated above
[2024-11-12] MEDS: Phenazopyridine HCL 200 MG TABLET PO (09:25)
[2024-11-18 20:04] LABS: Stone Source RIGHT KIDNEY STONE
== END 2024-11-12 09:54 | disposition home or self-care (01) ==
PROVIDERS: PCP Internal Medicine; Visit Provider Urology
PROC: (CPT 52356; principal; 2024-11-12 07:30)
DX: N20.1 Calculus of ureter (principal); R10.9 Unspecified abdominal pain
CPT/HCPCS: 52356; 82365; 88300; C1726; C1758; C1769; C2617; J0131; J0690; J1100; J1885; J2003; J2250; J2405; J2704; J3010; Q9967

== ENCOUNTER → 2024-11-12 06:00 | Outpatient (BNV) | payer BC, SELFPAY | PROVIDERS: PCP Internal Medicine; Visit Provider Urology | DX: N20.1 Calculus of ureter (principal) | CPT/HCPCS: 52356; 74420 ==

== ENCOUNTER 2024-11-29 08:59 | Outpatient (AMB) | payer BC, SELFPAY ==
--- NOTE | 2024-11-29 09:02 | A.OFFVIS_ITS ---
Intake Visit Reasons: Stent removal Intake Note: Patient is present for cystoscopy with stent removal Urology Meds: pyridium, tramadol Antibiotic Allergies:none Blood Thinners: none URO G-HD Disposable Cystoscope LOT: [id number] EXP: 02/07/27 Clerk Television Production Required: No Accompanied by: Self / Same As Patient Allergies No Known Allergies Allergy (Verified 11/29/24 09:04) HPI Comments Details: 11/29/24--here for cystoscopy right ureteral stent removal. Status post right ureteral lithotripsy of stone. Plan discussed about workup 24 hr urine. Ureteral stent removed today. CTAP--10/22/24--KIDNEYS/RETROPERITONEUM: There is a 3 mm calculus in the interpolar region of the right kidney and 2 additional 3 mm calculi at the lower pole. 4 mm calculus in the distal right ureter approximately 2 cm above the UVJ No left renal or ureteral calculi are identified. 10/22/24--Pawel is a very pleasant 43-year-old male patient of Loy Lomeli. He has a past medical history of allergies. He is being followed up on today via video telehealth. Of note, patient was seen approximately 1 month ago as a new patient for nephrolithiasis at which time a CT was ordered for further assessment evaluation. These results were reviewed with the patient today. 10/26 right nephrolithiasis 5 mm distal right ureteral calculus without hydroureterone phrosis is noted. In discussion with the patient today he continues to report ongoing intermittent right-sided flank pain. We discussed further intervention to include ureteroscopy as obstructing stone has been present since CT 07/2024. We discussed risks and benefits of ureteroscopy verses surveillance monitoring. He does report a previous history of nephrolithiasis in the past however never requiring surgical intervention. He otherwise denies any bothersome urinary issues. He denies urinary urgency, urinary frequency, incontinence, nocturia, hematuria, dysuria, foul smelling urine, changes to urinary stream, flank pain, fever, and or chills. He is happy with his current voiding parameters. We discussed importance of hydration relation to nephrolithiasis. He otherwise offers no other issues or concerns at this time. [facility] Medical History Right kidney stone Surgical History History of cholecystectomy Social History Are you a primary cardiac care nurse to a significant other at home: No Do you presently have visiting nurse or other home services: No Patient Tobacco Use Status: Never used Tobacco Second Hand Smoke Exposure: No Office Procedures Cystoscopy Consent Discussed risk and benefit or proposed procedure with the patient. Information consent for procedure given to the patient. Discussed technical aspects, risks, benefits and alternatives in full. Addressed all of the patient's questions and concerns regarding the procedure. The patient demonstrated knowledge and understanding. They wish to proceed with this procedure. Preparation The patient was prepped in the usual manner. A banana handler was present and in the room. Genitalia was prepped with betadine solution in a sterile manner. Lidocaine Jelly 2% was placed into the urethra and 16Fr flexible Olympus cystoscope was inserted into the meatus after adequate lubrication. Procedure Time out per protocol performed. Bladder Inspection Cystoscopy findings: mild edema ureteral orifice which is expected, distal end of ureteral stent visualized. The grasping forceps were used and the stent was removed without difficulty. 49638-[id number] with stent removal DISPOSABLE SCOPE URO-G FLEXIBLE SCOPE Procedure code (CPT) selection complete Office Meds lidocaine HCl 2 % mucosal jelly in applicator Performing Provider: Andrzej White MD Performing Location[facility] [place] [facility] Administered by: Patel Escobar LPN on 11/29/24 09:13 Dose Route Admin Location Dispensed Lot Number Expiration Date [facility] Psych Tech 10 mL intra-urethral 20 mL naproxen 500 mg tablet Performing Provider: Andrzej White MD Performing Location: [facility] [place] [facility] Administered by: Patel Escobar LPN on 11/29/24 09:13 Dose Route Admin Location Dispensed Lot Number Expiration Date [place] Psych Tech 500 mg PO 1 tab ciprofloxacin HCl 500 mg tablet Performing Provider: Andrzej White MD Performing Location: [facility] [place] [facility] Administered by: Patel Escobar LPN on 11/29/24 09:13 Dose Route Admin Location Dispensed Lot Number Expiration Date [facility] Psych Tech 500 mg PO 1 tab Results AMB Urinalysis, Automated UA Leukoctes 125 John/uL Last Edit by Vivian Ford MA on 11/29/24 09:14 UA Nitrite Negative Last Edit by Vivian Ford MA on 11/29/24 09:14 UA Urobilinogen 0.2 mg/dL Last Edit by Vivian Ford MA on 11/29/24 09:14 UA Protein 30 mg/dL Last Edit by Vivian Ford MA on 11/29/24 09:14 UA pH 6.0 Last Edit by Vivian Ford MA on 11/29/24 09:14 UA Blood 200 Parker/uL Last Edit by Vivian Ford MA on 11/29/24 09:14 UA Specific Aurora 1.015 Last Edit by Vivian Ford MA on 11/29/24 09:14 UA Ketone Negative Last Edit by Vivian Ford MA on 11/29/24 09:14 UA Bilirubin 0 mg/dL Last Edit by Vivian Ford MA on 11/29/24 09:14 UA Glucose 0 mg/dL Last Edit by Vivian Ford MA on 11/29/24 09:14 Results Reviewed Results Reviewed: Laboratory Last Values Urine pH (Auto) 6.0 11/29/24 09:12 Specific Aurora (Auto) 1.015 11/29/24 09:12 Urine Protein (Auto) 30 mg/dL 11/29/24 09:12 Glucose (UA)(Auto) 0 mg/dL 11/29/24 09:12 Urine Ketones (Auto) Negative 11/29/24 09:12 Urine Blood (Auto) 200 Parker/uL 11/29/24 09:12 Urine Nitrite (Auto) Negative 11/29/24 09:12 Urine Bilirubin (Auto) 0 mg/dL 11/29/24 09:12 Urine Urobilinogen (Auto) 0.2 mg/dL 11/29/24 09:12 Leukocyte Esterase (Auto) 125 John/uL 11/29/24 09:12 Date of Service: 10/22/24 Procedure(s): CT kidney stone FINDINGS: LOWER CHEST: The visualized lung bases are clear. There is no pleural effusion. CARDIOVASCULATURE: The heart is normal in size. There is no pericardial effusion. LIVER: The liver is normal in size and contour. The liver has an unremarkable unenhanced appearance. GALLBLADDER / BILE DUCTS: The gallbladder is surgically absent. There is no intra or extrahepatic biliary ductal dilatation. SPLEEN: The spleen is normal in size and has an unremarkable unenhanced appearance. PANCREAS: The pancreas has an unremarkable unenhanced appearance. ADRENAL GLANDS: Unremarkable. KIDNEYS/RETROPERITONEUM: There is a 3 mm calculus in the interpolar region of the right kidney and 2 additional 3 mm calculi at the lower pole. There is no hydronephrosis or hydroureter. However, there is a 4 mm calculus in the distal ureter approximately 2 cm above the UVJ (series 3, image 73). No left renal or ureteral calculi are identified. There is no left hydronephrosis or hydroureter. LYMPH NODES: No retroperitoneal lymphadenopathy is identified in the abdomen or pelvis. VASCULATURE: The abdominal aorta is normal in caliber. MESENTERY/PERITONEUM: No free fluid. No masses. There is no free intraperitoneal gas. STOMACH: The stomach is collapsed, limiting evaluation. SMALL BOWEL: The small bowel is normal in caliber. COLON: There is a large amount of stool throughout the colon. There is diverticulosis of the descending and sigmoid colon, without evidence of diverticulitis. APPENDIX: Normal. URINARY BLADDER/PELVIC ORGANS: The urinary bladder is collapsed, limiting evaluation. The prostate is normal in size. BONES / SOFT TISSUES: No suspicious bony or soft tissue abnormalities. IMPRESSION: Right nephrolithiasis as described. 5 mm distal right ureteral calculus without hydroureteronephrosis. Assessment & Plan Assessment & Plan (1) Nephrolithiasis: Code(s): N20.0 - Calculus of kidney Category: Medical Plan 24 hour urine. Orders: Orders AMB Urinalysis Automated Today Z13.9 - Encounter for screening, unspecified AMB Cystoscopy Today N20.0 - Calculus of kidney, R10.9 - Unspecified abdominal pain Patient Instructions: The patient had an opportunity to ask questions regarding treatment plan. The patient expressed understanding and agreement with the above treatment plan. The patient is aware they should contact our office by phone for worsening of their current condition or the appearance of new symptoms. Compliance is encouraged with any medications and followup testing that is ordered. It is a privilege to be allowed the opportunity to participate in the urologic care of your patient. If you have any questions or concerns regarding treatment for the above conditions please do not hesitate to contact me. The office telephone contact is [phone]. This note is constructed in part using voice recognition software. While every effort has been made to ensure accuracy motor brakeman errors may have been included. Yours sincerely, Andrzej White MD Coding Level of Care Code Procedure Only Diagnoses Nephrolithiasis N20.0 CPT Codes Cystoscopy - CPT: 07623-[id number] with stent removal ([id number])
--- OUTSIDE RECORDS SUMMARY | 2024-11-29 09:24 | XMS_ITS | Clinical Summary ---
Author Organization [facility] it Address [address] [place] [address] Care Team Providers Care Lacing String Cutter Name Role Phone Leslie Lomeli MD Primary Care Provider Allergies No known active allergies Medications fexofenadine (JUAN FRANCISCO) 60 mg tablet Take [...] reflux after cholecystectomy and significant weight reduction Immunizations Name Administration Dates Next Due Influenza [...] Recorded Sex Assigned at Not on file Legal Sex Male 3:53 PM EST Gender Identity Not on file Sexual Orientation Not on file Obstetrics History Plan of Treatment Health Maintenance Due Date Last Done Comments Hepatitis B Vaccines (1 of 3 - 19+ 3-dose series) 2000 Pneumococcal Vaccine: Pediatrics (0 to 5 Years) and At-Risk Patients (6 to 64 Years) (1 of 2 - PCV) 2000 DTaP,Tdap,and Td Vaccines (2 - Td [...] patient's age to complete this topic Meningococcal B Vacine Aged Out No lo nger eligible based on patient's age to complete [...] 142 0 - 200 mg/dL HDL 34(A) >=40 mg/dL LDL Cholesterol 77 0 - 100 mg/dL Blood Venous blood specimen / Unknown Historical Provider LAB BLOOD ORDERABLES Emily l Result from Last 3 Months or Most Recently Relevant to Health Maintenance Care Teams Lacing String Cutter Relationship Specialty Start Date End Date Leslie Lomeli MD [address] [place] [id number] PCP - General Internal Medicine 08/24/12
== END 2024-11-29 09:45 | disposition home or self-care (01) ==
PROVIDERS: PCP Internal Medicine; Visit Provider Urology
DX: N20.0 Calculus of kidney (principal); R10.9 Unspecified abdominal pain; Z13.9 Encounter for screening, unspecified
CPT/HCPCS: 52310

== ENCOUNTER → 2024-11-29 08:59 | Outpatient (BNVA) | payer BC, SELFPAY | PROVIDERS: PCP Internal Medicine; Visit Provider Urology | DX: Z48.816 Encounter for surgical aftercare following surgery on the genitourinary system (principal) | CPT/HCPCS: 52310; 81003 ==

== ENCOUNTER 2025-02-18 16:09 | Outpatient (AMB) | payer BC, SELFPAY ==
--- NOTE | 2025-02-18 16:09 | A.OFFVIS_ITS ---
Intake Visit Reasons: 12w/Litholink Intake Note: Patient presents today for follow up on: kidney stones and litholink results Urology Medications: none Blood Thinner: none Qm Consultant Required: No Accompanied by: Self / Same As Patient Allergies No Known Allergies Allergy (Verified 02/18/25 16:36) Medication List - Last Reconciled 02/18/25 by HAWK Galindo fexofenadine (Ghada Allergy) 180 mg PO DAILY HPI Comments Details: Pawel is a very pleasant 44-year-old male patient of Dr. Lomeli. He has a past medical history of allergies. He is being followed up on today via video telehealth for his history of nephrolithiasis. Of note, patient was seen approximately 3 months ago at which time he underwent right ureteral lithotripsy for an obstructing 5 mm stone. He followed up shortly after for in office cystoscopy with right ureteral stent removal. Recent 24 hour urine collection results were reviewed with the patient today. We discussed low urine volume of 1.3 L. We discussed the importance of increasing urine volume above 2.5 L. we discussed borderline hyperoxaluria. He otherwise denies any bothersome urinary issues or concerns. He denies urinary urgency, urinary frequency, incontinence, nocturia, hematuria, dysuria, foul smelling urine, changes to urinary stream, flank pain, fever, and or chills. He is happy with his current voiding parameters. We discussed importance of hydration relation to nephrolithiasis. He otherwise offers no other issues or concerns at this time. We discussed potential causes of nephrolithiasis. All questions were answered. COUNT INCLUDES THE [facility] Medical History Right kidney stone Surgical History History of cholecystectomy Social History Are you a primary post acute care nurse to a significant other at home: No Do you presently have visiting nurse or other home services: No Patient Tobacco Use Status: Never used Tobacco Second Hand Smoke Exposure: No Review of Systems Const All systems reviewed & are unremarkable except as noted in HPI and below Physical Exam Const General: cooperative, healthy appearing, comfortable, no acute distress, well developed, alert and awake Orientation/consciousness: patient oriented x3 Resp Effort & Inspection: normal respiratory effort and able to speak in complete sentences Neuro General: patient oriented x3 Psych Appearance: grossly normal and well kempt Mental Status: mental status grossly normal Speech and movement: Clear speech present Affect: normal affect Attitude: cooperative Thought process: Normal thought process present Thought content: Normal thought content present Insight: Fair insight present (Psych) Judgement: Fair judgement present (Psych) Telehealth Telehealth Telehealth Platform: OpenDNS Location of provider rendering services: practice address Location of patient: address on file Patient Identification confirmed using: Name, : Yes Telehealth method: video Patient verbally consented to treatment: Yes Patient verbally consented to billing insurance company: Yes Patient informed of any privacy concerns related to visit: Yes Minutes spent on Phone/Video with Pt.: 15 Assessment & Plan Assessment & Plan (1) Nephrolithiasis: Code(s): N20.0 - Calculus of kidney Category: Medical Plan Recent Litholink results reviewed with the patient today; as noted above. We discussed increased hydration to accumulate 2-2.5 L of urine output per day. He currently denies any bothersome urinary issues or concerns. He reports be happy with current voiding parameters. We discussed potential causes of nephrolithiasis. Continue adding 1 oz of lemon juice to water daily. Will obtain renal ultrasound in 3 months. Follow-up in 3 months with imaging to be completed prior; or sooner with any issues, concerns, and or questions. Orders: Orders US renal BI 3 Months N20.0 - Calculus of kidney Patient Instructions: The patient had an opportunity to ask questions regarding the treatment plan. All questions were answered. Physical exam, labs, and imaging were discussed and reviewed in detail. As well as risks, benefits, and discussion of treatment choices. No major barriers to understanding were identified. The patient expressed understanding and agreement with the above treatment plan. The patient was made aware they should contact our office by phone for worsening of their current condition, the appearance of new symptoms, or with any questions or concerns. Compliance is encouraged with any medications and follow up testing that is ordered. It is a privilege to be allowed the opportunity to participate in? your urological care.? Again, if you have any questions or concerns If you have any questions or concerns please do not hesitate to contact me. The office is [phone]. This note is constructed using voice recognition software. While every effort has been made to ensure accuracy family resource coordinator errors may have been included. Yours sincerely, HAWK Galindo Coding Level of Care Code Tele Est Pt Level 3 (87718) Diagnoses Nephrolithiasis N20.0
--- OUTSIDE RECORDS SUMMARY | 2025-02-18 16:45 | XMS_ITS | Clinical Summary ---
Author Organization [facility] Address [address] [place] [address] Phone Care Team Providers Care Bullet Swaging Machine Adjuster Name Role Phone Leslie Lomeli MD Primary Care Provider [phone] Allergies No known active allergies Medications fexofenadine [...] Encounters Date Type Department Care Team Description 12/05/2024 Telephone Adult Medicine [address] [id number] Leslie Lomeil MD Referral (Fax requesting an insurance referral - urology) from Last 3 Months Immunizations Name Administration [...] 06/11/2008 COVID-19 Vaccine (2023-2 5 season) 2024 Cholesterol Screening (Lipid Panel) 07/24/2024 09/09/2013 Depression Screening 07/24/2024 HIV Screening 07/24/2024 Hepatitis C Screening 07/24/2024 Social Influencers of Health Screening 07/24/2024 Influenza Vaccine (Season Ended) 2025 06/14/2013, 09/05/2012 HIB Vaccines Aged Out No longer eligi [...] age to complete this topic Meningococcal B Vaccine Aged Out No l onger eligible based on patient's age to complete [...] mg/dL Blood Venous blood specimen / Unknown [facility] Provider LAB BLOOD ORDERABLES Emily l Result from Last 3 Months or Most Recently Relevant to Health Maintenance Insurance [facility] Care Teams Bullet Swaging Machine Adjuster Relationship Specialty Start Date End Date Leslie Lomeli MD [address] [place] [address] PCP - General Internal Medicine 08/24/12
== END 2025-02-18 16:51 | disposition home or self-care (01) ==
LOC: HO.HUSH 16:09
PROVIDERS: PCP Internal Medicine; Visit Provider Nurse Practitioner Family
DX: N20.0 Calculus of kidney (principal)
CPT/HCPCS: 99213

== ENCOUNTER 2025-05-21 08:01 | Outpatient (REF) | payer BC, SELFPAY ==
--- NOTE | ~2025-05-21 | US_ITS ---
CLINICAL HISTORY: N20.0 - Calculus of kidney US Renal Comparison: None provided Findings: Right kidney normal size and echotexture, 11.9 cm length. Left kidney normal size and echotexture, 10.7 cm length. No collecting system dilatation of either kidney. Normal color Doppler. Questionable 7 mm nonobstructive right renal stone. IMPRESSION: Questionable 7 mm nonobstructive right renal stone. This document has been electronically signed by: Lea Lagunas MD on 05/22/2025 11:54:50
== END 2025-05-21 08:02 | disposition home or self-care (01) ==
LOC: HO.US 08:01
PROVIDERS: PCP Internal Medicine; Visit Provider Nurse Practitioner Family
DX: N20.0 Calculus of kidney (principal)
CPT/HCPCS: 76775

== ENCOUNTER → 2025-05-21 08:01 | Outpatient (BNV) | payer BC, SELFPAY | PROVIDERS: PCP Internal Medicine; Visit Provider Radiology Diagnostic Radiology | DX: N20.0 Calculus of kidney (principal) | CPT/HCPCS: 76775 ==

== ENCOUNTER 2025-06-03 15:36 | Outpatient (AMB) | payer BC, SELFPAY ==
--- NOTE | 2025-06-03 15:37 | A.OFFVIS_ITS ---
Intake Visit Reasons: / US Intake Note: Patient is present for / Urology Medication:NONE Antibiotic Allergy:NONE Blood Thinner:NONE Fire Sprinkler Designer Required: No Allergies No Known Allergies Allergy (Verified 06/03/25 16:15) Medication List - Last Reconciled 06/03/25 by HAWK Galindo fexofenadine (Ghada Allergy) 180 mg PO DAILY HPI Comments Details: Pawel is a very pleasant 44-year-old male patient of Dr. Lomeli. He has a past medical history of allergies. He is being followed up on today via video telehealth for his history of nephrolithiasis. In discussion with the patient today reports to be doing and feeling well. He denies having had any bothersome urinary issues or concerns since his last office visit here. Recent renal imaging results reviewed with the patient today. 05/26 bilateral kidneys are normal in size and echotexture. No collecting system dilatation of either kidney. Normal color Doppler. Questions 7 mm nonobstructive right renal stone per radiology report. Patient with a previous surgical history with Dr. Donta Garcia 11/26 for right-sided obstructing stone at which time he underwent right ureteral lithotripsy for an obstructing 5 mm stone. He followed up shortly after for in office cystoscopy with right ureteral stent removal. Previous workup has included a Litholink that noted low urine volume of 1.3 L as well as borderline hyperoxaluria. He denies urinary urgency, urinary frequency, incontinence, nocturia, hematuria, dysuria, foul smelling urine, changes to urinary stream, flank pain, fever, and or chills. He is happy with his current voiding parameters. We discussed importance of hydration relation to nephrolithiasis. He otherwise offers no other issues or concerns at this time. We discussed potential causes of nephrolithiasis. All questions were answered. [facility] Medical History Right kidney stone Surgical History History of cholecystectomy Social History Are you a primary intensive care specialist to a significant other at home: No Do you presently have visiting nurse or other home services: No Patient Tobacco Use Status: Never used Tobacco Second Hand Smoke Exposure: No Review of Systems Const All systems reviewed & are unremarkable except as noted in HPI and below Physical Exam Const General: cooperative, healthy appearing, comfortable, no acute distress, well developed, alert and awake Orientation/consciousness: patient oriented x3 Resp Effort & Inspection: normal respiratory effort and able to speak in complete sentences Neuro General: patient oriented x3 Psych Appearance: grossly normal and well kempt Mental Status: mental status grossly normal Speech and movement: Clear speech present Affect: normal affect Attitude: cooperative Thought content: Normal thought content present Insight: Fair insight present (Psych) Judgement: Fair judgement present (Psych) Telehealth Telehealth Telehealth Platform: iRx Reminder Location of provider rendering services: practice address Location of patient: address on file Patient Identification confirmed using: Name, : Yes Telehealth method: video Patient verbally consented to treatment: Yes Patient verbally consented to billing insurance company: Yes Patient informed of any privacy concerns related to visit: Yes Minutes spent on Phone/Video with Pt.: 15 Results Reviewed Results Reviewed: Date of Service: 05/21/25 Procedure(s): US renal BI Findings: Right kidney normal size and echotexture, 11.9 cm length. Left kidney normal size and echotexture, 10.7 cm length. No collecting system dilatation of either kidney. Normal color Doppler. Questionable 7 mm nonobstructive right renal stone. IMPRESSION: Questionable 7 mm nonobstructive right renal stone. Assessment & Plan Assessment & Plan (1) Nephrolithiasis: Code(s): N20.0 - Calculus of kidney Category: Medical Plan Recent renal imaging results reviewed with the patient today; as noted above. He currently denies any bothersome urinary issues or concerns. He reports be happy with current voiding parameters. We discussed further interventions to include imaging versus surveillance monitoring; risks and benefits of these interventions were discussed. All questions were answered. Continue with adequate hydration. Continue adding 1 oz of lemon juice to water daily. Start vitamin B6 as discussed and prescribed. Will obtain KUB for further assessment evaluation. Follow-up in 3 months with imaging to be completed prior; or sooner with any issues, concerns, and or questions. Orders: Orders XR KUB Today N20.0 - Calculus of kidney Medications: New pyridoxine (vitamin B6) 100 mg PO DAILY 90 tabs 1RF 90 days Patient Instructions: The patient had an opportunity to ask questions regarding the treatment plan. All questions were answered. Physical exam, labs, and imaging were discussed and reviewed in detail. As well as risks, benefits, and discussion of treatment choices. No major barriers to understanding were identified. The patient expressed understanding and agreement with the above treatment plan. The patient was made aware they should contact our office by phone for worsening of their current condition, the appearance of new symptoms, or with any questions or concerns. Compliance is encouraged with any medications and follow up testing that is ordered. It is a privilege to be allowed the opportunity to participate in? your urological care.? Again, if you have any questions or concerns If you have any questions or concerns please do not hesitate to contact me. The office is [phone]. This note is constructed using voice recognition software. While every effort has been made to ensure accuracy calender operator helper errors may have been included. Yours sincerely, HAWK Galindo Coding Level of Care Code Tele Est Pt Level 3 (32172) Diagnoses Nephrolithiasis N20.0
--- OUTSIDE RECORDS SUMMARY | 2025-06-03 16:35 | XMS_ITS ---
Author Name [facility] Organization Unknown Care Team Organization Name Specialty Phone Email Start Date End Da te [facility] 09/13/2023 05/20/2024 [facility] 08/09/2022 05/20/2024
--- OUTSIDE RECORDS SUMMARY | 2025-06-03 16:35 | XMS_ITS | Clinical Summary ---
Author Organization [facility] Address [address] [place] [address] Phone Care Team Providers Care Teaching Fellow Name Role Phone Leslie Lomeli MD Primary Care Provider [phone] Allergies No known active allergies Medications fexofenadine (JUAN FRANCISCO) 60 mg tablet Take 60 mg by mouth daily. Active budesonide (RHINOCORT AQ) 32 mcg/actuation nasal spray Administer 1-2 sprays into each nostril 1 (one) time each day. 1 mL 1 5 04/02/20 26 Active Active Problems Problem Noted Date Diagnosed Date Asthma, well controlled 09/20/2024 Overview (09/20/2024): Well controlled, not on any controller. Chronic cholecystitis 01/25/2013 Overview (09/20/2024): S/p cholecystectomy 03/08/2013 Renal stone 12/12/2012 Overview (09/20/2024): Passed stone sep 2012 GERD (gastroesophageal reflux disease) 1 Overview (09/20/2024): No reflux after cholecystectomy and significant weight reduction Encounters Date Type Department Care Team Description 03/31/2025 10:58 AM EDT - 03/31/2025 11:59 PM EDT Hospital Encounter XRAY [address] [phone] Cough, unspecified type Discharge Disposition: Home or Self Care 03/31/2025 10:30 AM EDT Office Visit Adult Medicine [address] [phone] Leslie Lomeli MD Cough, unspecified type (Primary Dx); Productive cough; Chest congestion; Renal stone 03/31/2025 Telephone Adult Medicine [address] [phone] Leslie Lomeli MD 03/31/2025 Telephone Adult Medicine [address] [phone] Leslie Lomeli MD from Last 3 Months Immunizations Name Administration [...] drink = 0.6 oz pur e alcohol) Housing Instability Answer Date Recorde d Are you worried that in the next 2 months you may not have stable housing? No 03/31/2025 Food Access & Nutrition Answer Date Rec orded Do you have access to a vari ety of food including fruits and vegetables? Yes 03/31/2025 Access to Healthcare Answer Date Record ed Within the last 3 months, ho w many times did you visit the emergency department for your medical care? 0 03/31/2025 Health Literacy Answer Date Recorded How often do you need to hav e someone help you when you read instructions, pamphlets, or other written material from your doctor or pharmacy? Never 03/31/2025 Caregiver: How often do you need to have someone help you when you read instructions, pamphlets, or other written material from your doctor or pharmacy? Not on file 03/31/2025 Financial Risk Answer Date Recorded How hard is it for you to pa y for the very basics like food, housing, medical care, and air conditioning / heating? Not very hard 03/31/2025 Transportation Answer Date Recorded Has the lack of transportati on kept you from meetings, work, or from getting things needed for daily living? No Has the lack of transportati on kept you from medical appointments or from getting medications? No 03/31/2025 Social Isolation Answer Date Recorded How often do you feel lonely or isolated from th ose around you? Never 03/31/2025 Food Risk Answer Date Recorded Within the past 12 months we worried whether our food would run out before we got money to buy more. Never true 03/31/2025 Within the past 12 months th e food we bought just didn't last and we didn't have money to get more. Never true 03/31/2025 Dependent Care Answer Date Recorded Do you need help finding or paying for care for your loved ones. For example, child nurse or elderly care for an older adult? No 03/31/2025 Education Answer Date Recorded Do you think completing more education or training, like finishing a GED, going to college, or learning a trade, would be helpful for you? No 03/31/2025 Employment and Income Answer Date Recor ded During the last four weeks, have you been actively looking for work? No 03/31/2025 Living Situation Answer Date Recorded What is your living situation? 0 03/31/2025 Sex and Gender Information Value Date Recorded Sex Assigned at Not on file Legal Sex Male 3:53 PM EST Gender Identity Not on file Sexual Orientation Not on file Obstetrics History Last Filed Vital Signs Vital Sign Reading Time Taken Comments Blood Pressure 122/82 03/31/2025 10:50 AM EDT Pulse 102 03/31/2025 10:50 AM EDT Temperature 36.2 C (97.1 F) 03/31/2025 10:50 AM EDT Respiratory Rate 20 03/31/2025 10:50 AM EDT Oxygen Saturation 95% 03/31/2025 10:50 AM EDT Inhaled Oxygen Concentration - - Weight 104 kg (229 lb) 03/31/2025 10:50 AM EDT Height 177.8 cm (5' 10 ) 03/31/2025 10:50 AM EDT Body Mass Index 32.86 03/31/2025 10:50 AM EDT Plan of Treatment Health Maintenance Due Date Last Done Comments Hepatitis B Vaccines (1 of 3 - 19+ 3-dose series) 2000 Pneumococcal Vaccine: Pediatrics (0 to 5 Years) and At-Risk Patients (6 to 49 Years) (1 of 2 - PCV) 2000 DTaP,Tdap,and Td Vaccines (2 - Td or Tdap) 06/11/2018 06/11/2008 COVID-19 Vaccine (2023-2 5 season) 2024 08/22/2021, 01/02/2021, 12/12/2020 Cholesterol Screening (Lipid Panel) 07/24/2024 09/09/2013 HIV Screening 07/24/2024 Hepatitis C Screening 07/24/2024 Influenza Vaccine (#1) 2025 , 06/14/2013, 09/05/2012 Social Influencers of Health Screening 03/31/2026 03/31/2025 Depression Screening Completed 03/31/2025 HIB Vaccines Aged Out No longer eligi [...] Procedure Name Priority Date/Time Associated Diagnosis Comments EXTERNAL ULTRASOUND REPORT 05/21/2025 XR CHEST 2 VIEWS STAT 03/31/2025 11:0 5 AM EDT Cough, unspecified type LIPID PANEL Routine 09/09/2013 from Last 3 Months or Most Recently Relevant to Health Maintenance Results * External Ultrasound Report (05/21/2025) Anatomical Region Laterality Modality Ultrasound us Provider [facility] IMG US PROCEDURES Final Result * XR Chest 2 Views (03/31/2025 11:05 AM EDT) Anatomical Region Laterality Modality Body Radiographic Caroline ging 03/31/2025 11:0 6 AM EDT Impressions 03/31/2025 11:07 AM EDT No acute cardiopulmonary process. -------- FINAL REPORT -------- Dictated By: José Miguel Sosa Dictated Date: 03/31/2025 11:06 ET Assigned Physician: José Miguel Sosa Reviewed and Electronically Signed By: José Miguel Sosa Signed Date: 03/31/2025 11:07 ET Workstation ID: [id number] Transcribed By: Self Edit Transcribed Date: 03/31/2025 11:06 ET Narrative 03/31/2025 11:07 AM EDT HISTORY: cough TECHNIQUE: PA and lateral radiographs of the chest COMPARISON: Chest radiograph from 10/06/2012 FINDINGS: There is a normal cardiomediastinal silhouette. The lungs are clear. The osseous structures are intact. Procedure Note José Miguel Sosa MD - 03/31/2025 HISTORY: cough TECHNIQUE: PA and lateral radiographs of the chest COMPARISON: Chest radiograph from 10/06/2012 FINDINGS: There is a normal cardiomediastinal silhouette. The lungs are clear. Theosseous structures are intact. IMPRESSION: No acute cardiopulmonary process. -------- FINAL REPORT -------- Dictated By: José Miguel Sosa Dictated Date: 03/31/2025 11:06 ET Assigned Physician: José Miguel Sosa Reviewed and Electronically Signed By: José Miguel Sosa Signed Date: 03/31/2025 11:07 ET Workstation ID: [id number] Transcribed By: Self Edit Transcribed Date: 03/31/2025 11:06 ET Leslie Lomeli MD IMG XR PROCEDURES Final Result * (ABNORMAL) Lipid panel (09/09/2013) LDL/HDL Ratio 4 0 - 4 Triglycerides 156(A) 0 - 150 mg/dL Cholesterol 142 0 - 200 mg/dL HDL 34(A) >=40 mg/dL LDL Cholesterol 77 0 - 100 mg/dL Blood Venous blood specimen / Unknown Historical Provider LAB BLOOD ORDERABLES Emily l Result from Last 3 Months or Most Recently Relevant to Health Maintenance Insurance [facility] Care Teams Teaching Fellow Relationship Specialty Start Date End Date Leslie Lomeli MD [address] [place] [id number] PCP - General Internal Medicine 08/24/12
== END 2025-06-03 16:34 | disposition home or self-care (01) ==
LOC: HO.HUSH 15:36
PROVIDERS: PCP Internal Medicine; Visit Provider Nurse Practitioner Family
DX: N20.0 Calculus of kidney (principal)
CPT/HCPCS: 99213

== ENCOUNTER 2025-06-17 16:23 | Outpatient (REF) | payer BC, SELFPAY ==
--- NOTE | ~2025-06-17 | XR_ITS ---
EXAMINATION: XR ABDOMEN KUB CLINICAL INDICATION: N20.0 - Calculus of kidney COMPARISON: CT on October 22, 2024 TECHNIQUE: AP view of the abdomen. FINDINGS: Right upper quadrant clips are consistent with prior cholecystectomy. 5 mm calcification projects over the lower pole right kidney. 2 stones evident on prior CT are not demonstrated by this x-ray. Moderate stool and gas obscure the upper half of the right kidney. Somewhat globular calcification cephalad to the left greater trochanter is also present on the recent CT scan. XR/XR KUB IMPRESSION: 5 mm stone is present in the lower pole right kidney. Suspected left gluteus medius calcific tendinitis. Electronically signed by: Romie Neil MD 06/17/2025 04:52 PM EDT
--- OUTSIDE RECORDS SUMMARY | 2025-06-17 19:07 | XMS_ITS | Clinical Summary ---
Author Organization [facility] Address [address] [place] [address] Phone Care Team Providers Care Barrel Straightener Name Role Phone Leslie Lomeli MD Primary Care Provider [phone] Allergies No known active allergies Medications fexofenadine [...] 03/31/2025 11:59 PM EDT Hospital Encounter XRAY [address] [phone] Cough, unspecified type Discharge Disposition: Home or Self Care 03/31/2025 10:30 AM EDT Office Visit Adult Medicine [address] [phone] Leslie Lomeli MD Cough, unspecified type (Primary Dx); Productive cough; Chest congestion; Renal stone 03/31/2025 Telephone Adult Medicine [address] [phone] Leslie Lomeli MD 03/31/2025 Telephone Adult Medicine [address] [phone] Leslie Lomeli MD from Last 3 Months [...] care for your loved ones. For example, early childhood services coordinator or elderly care for an older adult? [...] (2 - Td or Tdap) 06/11/2018 06/11/2008 Cholesterol Screening (Lipid Panel) 07/24/2024 09/09/2013 HIV Screening 07/24/2024 Hepatitis C Screening 07/24/2024 COVID-19 Vaccine (2024-2 6 season) 2025 08/22/2021, 01/02/2021, 12/12/2020 Influenza Vaccine (#1) 2025 , 06/14/2013, 09/05/2012 [...] Signed Date: 03/31/2025 11:07 ET Workstation ID: [id number] Transcribed By: Self Edit Transcribed Date: 03/31/2025 [...] Signed Date: 03/31/2025 11:07 ET Workstation ID: [id number] Transcribed By: Self Edit Transcribed Date: 03/31/2025 [...] Most Recently Relevant to Health Maintenance Insurance [facility] Care Teams Barrel Straightener Relationship Specialty Start Date End Date Leslie Lomeli MD [address] [place] [id number] PCP - General Internal Medicine 08/24/12
== END 2025-06-17 16:24 | disposition home or self-care (01) ==
LOC: HO.XRAY 16:23
PROVIDERS: PCP Internal Medicine; Visit Provider Nurse Practitioner Family
DX: N20.0 Calculus of kidney (principal)
CPT/HCPCS: 74018

== ENCOUNTER → 2025-06-17 16:27 | Outpatient (BNV) | payer BC, SELFPAY | PROVIDERS: PCP Internal Medicine; Visit Provider Radiology Diagnostic Radiology | DX: N20.0 Calculus of kidney (principal) | CPT/HCPCS: 74018 ==

== ENCOUNTER 2025-09-02 14:04 | Outpatient (AMB) | payer BC, SELFPAY ==
--- NOTE | 2025-09-02 14:04 | A.OFFVIS_ITS ---
Intake Visit Reasons: 3m/x-ray Intake Note: Patient is present for 3M/X-RAY Urology Medication:VITAMIN B6 Antibiotic Allergy:NONE Blood Thinner:NONE Electrical Repairer Required: No Allergies No Known Allergies Allergy (Verified 09/02/25 14:40) Medication List - Last Reconciled 09/02/25 by HAWK Galindo fexofenadine (Ghada Allergy) 180 mg PO DAILY pyridoxine (vitamin B6) 100 mg PO DAILY 90 days HPI Comments Details: Pawel is a very pleasant 44-year-old male patient of Dr. Lomeli. He has a past medical history of allergies. He is being followed up on today via video telehealth for his history of nephrolithiasis. In discussion with the patient today reports to be doing and feeling well. He denies having had any bothersome urinary issues. However, he has been experiencing episodes of right flank pain intermittently. Most recent KUB results reviewed with the patient to day 06/26 5 mm right lower pole calcification. Previous renal ultrasound 05/26 noted 7 mm nonobstructive right renal stone. We did discussed variability of sizing with imaging. Patient with a previous surgical history with Dr. Donta Garcia 11/26 for right-side stone at which time he underwent right ureteral lithotripsy for an obstructing 5 mm stone. He followed up shortly after for in office cystoscopy with right ureteral stent removal. Previous workup has included a Litholink that noted low urine volume of 1.3 L as well as borderline hyperoxaluria. He denies urinary urgency, urinary frequency, incontinence, nocturia, hematuria, dysuria, foul smelling urine, changes to urinary stream, fever, and or chills. He is happy with his current voiding parameters. We discussed importance of hydration relation to nephrolithiasis as well as further treatment options and risks and benefits of these treatment options. He otherwise offers no other issues or concerns at this time. We discussed potent ial causes of nephrolithiasis. All questions were answered. [facility] Medical History Right kidney stone Surgical History History of cholecystectomy Social History Are you a primary manager medicare marketing to a significant other at home: No Do you presently have visiting nurse or other home services: No Patient Tobacco Use Status: Never used Tobacco Second Hand Smoke Exposure: No Review of Systems Const All systems reviewed & are unremarkable except as noted in HPI and below Physical Exam Const General: cooperative, healthy appearing, comfortable, no acute distress, well developed, alert and awake Orientation/consciousness: patient oriented x3 Resp Effort & Inspection: normal respiratory effort and able to speak in complete sentences Neuro General: patient oriented x3 Psych Appearance: well kempt Speech and movement: Clear speech present Affect: normal affect Attitude: cooperative Thought content: Normal thought content present Insight: Fair insight present (Psych) Judgement: Fair judgement present (Psych) Telehealth Telehealth Telehealth Platform: Telephone Location of provider rendering services: practice address Location of patient: address on file Patient Identification confirmed using: Name, : Yes Telehealth method: video Patient verbally consented to treatment: Yes Patient verbally consented to billing insurance company: Yes Patient informed of any privacy concerns related to visit: Yes Minutes spent on Phone/Video with Pt.: 20 Results Reviewed Results Reviewed: Ordering Physician: Niki Cordova Date of Service: 06/17/25 FINDINGS: Right upper quadrant clips are consistent with prior cholecystectomy. 5 mm calcification projects over the lower pole right kidney. 2 stones evident on prior CT are not demonstrated by this x-ray. Moderate stool and gas obscure the upper half of the right kidney. Somewhat globular calcification cephalad to the left greater trochanter is also present on the recent CT scan. IMPRESSION: 5 mm stone is present in the lower pole right kidney. Assessment & Plan Assessment & Plan (1) Nephrolithiasis: Code(s): N20.0 - Calculus of kidney Category: Medical (2) Flank pain: Code(s): R10.9 - Unspecified abdominal pain Category: Medical Plan: Plan Extracorporeal Shock Wave Lithotripsy We discussed the nature of the decision and reasonable alternatives for performing the above surgery. Interventions include chemical dissolution, ESWL, ureteroscopy with laser lithotripsy and stent placement, PCNL. ? Options such as medical therapy were discussed. The relative uncertainties and benefits related to each alternate procedure were adequately discussed. General surgical risks including, but not limited to, pain, bleeding, infection, myocardial infarction, pulmonary embolus, deep vein thrombosis and cerebrovascular accident which may result in further hospitalization were discussed.? Full disclosure of the procedure as well as all major risks, benefits and complications were discussed including but not limited to risks of bleeding, injury to the kidney with hematoma or jacob-hematoma, failure to fragments stone, potential for ureteric obstruction from stone passage and need for secondary procedures.? There is a small long-term risk of hypertension and a question bere of diabetes.? Success rate of fragmentation and passage is approximately 70- 75%.? This is compared to the risks and benefits for ureteroscopy which has a higher success rate but is a more invasive procedure. The success rate of the procedure was discussed. Success of the procedure in the short-term does not necessarily guarantee that long-term success will be maintained. Suitable follow up will need to be maintained. The patient showed understanding of the discussion as well as the typical recovery time, and the outpatient nature of this procedure. Opportunity was given for questions. Repeat-back protocol used to confirm understanding. They wish to proceed with Right ESWL Plan Recent renal imaging results reviewed with the patient today; as noted above. We did discuss nephrolithiasis at length; we discussed surveillance monitoring verses ESWL; we discussed risks and benefits of these interventions All questions were answered. Continue with adequate hydration. Continue adding 1 oz of lemon juice to water daily. Continue vitamin B6 as discussed and prescribed. Will schedule for right-sided ESWL as discussed. Follow-up per doctor's orders; or sooner with any issues, concerns, and or questions. Patient Instructions: The patient had an opportunity to ask questions regarding the treatment plan. All questions were answered. Physical exam, labs, and imaging were discussed and reviewed in detail. As well as risks, benefits, and discussion of treatment choices. No major barriers to understanding were identified. The patient expressed understanding and agreement with the above treatment plan. The patient was made aware they should contact our office by phone for worsening of their current condition, the appearance of new symptoms, or with any questions or concerns. Compliance is encouraged with any medications and follow up testing that is ordered. It is a privilege to be allowed the opportunity to participate in? your urological care.? Again, if you have any questions or concerns If you have any questions or concerns please do not hesitate to contact me. The office is [phone]. This note is constructed using voice recognition software. While every effort has been made to ensure accuracy medical transcriptionist errors may have been included. Yours sincerely, Niki Cordova, STAINING MACHINE OPERATOR-BC Coding Level of Care Code Tele Est Pt Level 4 (52972) Diagnoses Nephrolithiasis N20.0 Flank pain R10.9
== END 2025-09-02 15:05 | disposition home or self-care (01) ==
LOC: HO.HUSH 14:04
PROVIDERS: PCP Internal Medicine; Visit Provider Nurse Practitioner Family
DX: N20.0 Calculus of kidney (principal); R10.A1 Flank pain, right side
CPT/HCPCS: 99214

== ENCOUNTER → 2025-09-17 06:15 | Outpatient (BNV) | payer BC, SELFPAY | PROVIDERS: PCP Internal Medicine; Visit Provider Radiology Diagnostic Radiology | DX: N20.0 Calculus of kidney (principal) | CPT/HCPCS: 74018 ==

== ENCOUNTER 2025-09-17 07:50 | Day surgery (SDC) | payer BC, SELFPAY ==
--- OUTSIDE RECORDS SUMMARY | 2025-09-05 06:37 | XMS_ITS | Clinical Summary ---
Author Organization [facility] Address [address] [place] [address] Phone Care Team Providers Care Husbandry Person Name Role Phone Leslie Lomeli MD Primary Care Provider [phone] Allergies No known active allergies Medications fexofenadine [...] after cholecystectomy and significant weight reduction Immunizations Immunization Administration Dates Next Due Influenza trivalent, 0.5mL, [...] care for your loved ones. For example, salesperson children's shoes or elderly care for an older adult? [...] Date Recorded What is your living situation? Unrecognized valu e 03/31/2025 Sex and Gender Information Value Date [...] Years) (1 of 2 - PCV) 2000 HPV Vaccines (1 - 3-dose SCD M series) 2008 DTaP,Tdap,and Td Vaccines (2 - Td or Tdap) 06/11/2018 06/11/2008 Cholesterol Screening (Lipid Panel) 07/24/2024 09/09/2013 HIV Screening 07/24/2024 Hepatitis C Screening 07/24/2024 COVID-19 Vaccine (4 - 2024-2 6 season) 2025 08/22/2021, 01/02/2021, 12/12/2020 Influenza Vaccine (#1) 2025 , 06/14/2013, 09/05/2012 Social Influencers of Health Screening 03/31/2026 03/31/2025 RSV Immunization Adult Patients (1 - 1-dose 75+ series) 2056 Depression Screening Completed 03/31/2025 HIB Vaccines Aged [...] Name Priority Date/Time Associated Diagnosis Comments EXTERNAL XRAY REPORT 06/17/2025 EXTERNAL XRAY REPORT 06/17/2025 LIPID PANEL Routine 09/09/2013 from Last 3 Months or Most Recently Relevant to Health Maintenance Results * External Xray Report (06/17/2025) Only the most recent of2 resultswithin the time period is included. Anatomical Region Laterality Modality Radiographic Caroline ging us Provider [facility] XR PROCEDURES Final Result * (ABNORMAL) Lipid panel (09/09/2013) LDL/HDL Ratio 4 0 - 4 Triglycerides 156(A) 0 - 150 mg/dL Cholesterol 142 0 - 200 mg/dL HDL 34(A) >=40 mg/dL LDL Cholesterol 77 0 - 100 mg/dL Blood Venous blood specimen / Unknown us Historical Provider LAB BLOOD ORDERABLES Emily l Result from Last 3 Months or Most Recently Relevant to Health Maintenance Insurance [facility] Care Teams Husbandry Person Relationship Specialty Start Date End Date Leslie Lomeli MD [address] [place] [id number] PCP - General Internal Medicine 08/24/12
--- NOTE | 2025-09-15 10:19 | HO.ANESPROP2 ---
Documented by User: Eulalia Colunga NP 09/15/25 10:20 HPI - Anesthesia Eval Consult details Narrative: 44 yr old male for right lithotripsy ESW Asthma: well controlled per PCP note from 03/2025 COUNTS INCLUDE 234 BEDS AT THE [facility] Active Problems Active Problems: All Active Problems Flank pain (Acute) Nephrolithiasis (Acute) Past Medical History Medical History GERD (gastroesophageal reflux disease) Asthma Right kidney stone Family History Family history of problems with anesthesia: No Surgical History Surgical History Hx of cystoscopy History of cholecystectomy History of Problems with Anesthesia: No Social History Social History Are you a primary resident care provider to a significant other at home: No Do you presently have visiting nurse or other home services: No Patient Tobacco Use Status: Never used Tobacco Second Hand Smoke Exposure: No Use of substances other than those prescribed or required for medical reasons: No Have you been hit, kicked, punched, or otherwise hurt by someone within the past year? If so, by whom?: No Are you DNR?: No Advance Directives: No Advance Directives Information Provided: Yes Advance Directives on File: No Meds Allergies Allergy/AdvReac Type Severity Reaction Status Date / Time No Known Allergies Allergy Verified 09/02/25 14:40 Home Medications ?Medication ?Instructions ?Recorded ?Confirmed ?Last Taken ?Type fexofenadine 180 mg tablet 180 mg PO DAILY 09/11/24 09/15/25 11/11/24 History (Ghada Allergy) Assessment and Plan Final Anesthetic Review Family History of Problems with Anesthesia: No History of Problems with Anesthesia: No Documented by User: Darrius Cooley MD 09/17/25 09:45 COUNTS INCLUDE 234 BEDS AT THE [facility] Past Medical History Medical History GERD (gastroesophageal reflux disease) Asthma Right kidney stone Surgical History Surgical History Hx of cystoscopy History of cholecystectomy Social History Social History Are you a primary resident care provider to a significant other at home: No Do you presently have visiting nurse or other home services: No Patient Tobacco Use Status: Never used Tobacco Second Hand Smoke Exposure: No Use of substances other than those prescribed or required for medical reasons: No Have you been hit, kicked, punched, or otherwise hurt by someone within the past year? If so, by whom?: No Are you DNR?: No Advance Directives: No Advance Directives Information Provided: Yes Advance Directives on File: No Meds Allergies Allergy/AdvReac Type Severity Reaction Status Date / Time No Known Allergies Allergy Verified 09/02/25 14:40 Home Medications ?Medication ?Instructions ?Recorded ?Confirmed ?Last Taken ?Type fexofenadine 180 mg tablet 180 mg PO DAILY 09/11/24 09/15/25 11/11/24 History (Ghada Allergy) Exam Exam Date and Time: 09/17/25 Airway Mallampati Class: II TM Dist: >3cm Neck ROM: Full Heart: rrr Lungs: ctab vesicular Assessment and Plan Assessment Anesthesia Assessment: Anesthesia Plan Discussed and Chart Reviewed Final Anesthetic Review NPO: Yes ASA Class: II Final Preanesthetic Review: No Changes in Pt Med Stat, Meds/Allgs Chart Reviewed, Consent Obtained/Reviewed and Anes Risks/Benef Reviewed Patient Risk: Low Procedure Risk: Low Anesthetic Plan Anesthetic Plan: MAC: Disposition: Standard PACU
[2025-09-15 11:24] VITALS: BMI 32.9
--- NOTE | ~2025-09-17 | XR_ITS ---
EXAMINATION: XR ABDOMEN 1 VIEW (KUB) HISTORY: kidney stone- right COMPARISON: Comparison is made with the prior examination dated 06/17/2025. FINDINGS: Two supine views of the abdomen are submitted. The bowel gas pattern is unremarkable, without evidence of mechanical obstruction. Again seen is a 5 mm calcification overlying the right renal shadow. There are surgical clips in the right upper quadrant. There are no abnormal soft tissue masses. The bones are intact. XR/XR KUB IMPRESSION: 5 mm calcification overlying the right renal shadow without change. Electronically signed by: Salinas Patrick MD 09/17/2025 08:14 AM EST
--- NOTE | 2025-09-17 08:26 | MHC.SHP ---
Pre-Procedural Eval Section A - 24 Hr Update-Section A only Date of Service: 09/17/25 The patient is an INPATIENT: No Changes since office visit: No Cold of Flu in the past 2 weeks, No New Medical Problems, No Changes in Medication and No Patient answered all questions The patient has been examined within 24 hours of the surgical procedure. The History & Physical has been completed within 30 days and I have reviewed it.: Yes Section B - Complete if H&P > 30 days Chief Complaint: Calculus of kidney Details of Present Illness: right renal pelvis stones Allergies: Allergies Allergy/AdvReac Type Severity Reaction Status Date / Time No Known Allergies Allergy Verified 09/02/25 14:40 Plan I have reviewed the history and physical and performed a pertinent physical examination on my patient. No changes have occurred unless specified. Time Spent With Patient Time: Total time managing care of this patient today ____ minutes.
[2025-09-17 08:57] VITALS: BP 138/60; PULSE 84; RESP 16; TEMP 36.8; O2SAT 96
[2025-09-17] MEDS: Lactated Ringers 1,000 ML 999 ML IV (09:05)
--- NOTE | 2025-09-17 10:10 | W.PM.OPN ---
Operative Note Operative Note Date of Service: 09/17/25 Narrative: PreOperative Diagnosis: right Renal stones Post Operative Diagnosis: right Renal stones Procedure: right ESWL Surgeon: Dr David Guadarrama Anesthesia: mac/sedation Indications for procedure: The patient understands ESWL may be a staged procedure and subsequent intervention may be required based on imaging after ESWL. Quoted stone clearance rates for a solitary procedure are in the 70-80% range based primarily on stone location. They also understand there is a risk of bleeding to the kidney, infection, damage to adjacent organs, and stone migration following the procedure. - Imaging - US with 2x 5mm right renal pole Procedure optimization has been performed with IV acetaminophen given in the holding area and 1 L of lactated Ringer's to be given in order to optimize the fluid-stone interface. 20 mg of IV Lasix will be given in the last 5 minutes of the procedure to optimize stone clearance. Procedure: After informed consent was verified the patient was brought to the operating room and placed in a supine position. Anesthesia was performed per protocol. Safety pause time-out was performed. Imaging was displayed in the room and laterality confirmed. ESWL was performed. The 1st 500 shocks were performed at 60 hertz. These were performed with increasing power. Once maximum power was reached the rate was increased to 180 hertz. A total of 2500 shocks were given. Targeted imaging with ultrasound/fluoroscopy showed stone smudging suggestive of disintegration. The patient tolerated the procedure well and was transferred to the recovery area upon completion. Post procedure imaging will be organized. There was no evidence for flank discoloration.
[2025-09-17 10:16] VITALS: BP 104/67; PULSE 80; RESP 12; TEMP 36.2; O2SAT 95
[2025-09-17 10:31] VITALS: BP 109/77; PULSE 78; RESP 14; TEMP 36.3; O2SAT 95
== END 2025-09-17 10:52 | disposition home or self-care (01) ==
PROVIDERS: PCP Internal Medicine; Visit Provider Urology
PROC: (CPT 50590; principal; 2025-09-17 10:00)
DX: N20.0 Calculus of kidney (principal); Z87.442 Personal history of urinary calculi; Z79.899 Other long term (current) drug therapy; Z90.49 Acquired absence of other specified parts of digestive tract
CPT/HCPCS: 50590; 74018; J0131; J2003; J2405; J2704; J3010

== ENCOUNTER → 2025-09-17 07:50 | Outpatient (BNV) | payer BC, SELFPAY | PROVIDERS: PCP Internal Medicine; Visit Provider Urology | DX: N20.0 Calculus of kidney (principal) | CPT/HCPCS: 50590 ==

== ENCOUNTER 2025-09-30 08:57 | Outpatient (REF) | payer BC, SELFPAY ==
--- NOTE | ~2025-09-30 | US_ITS ---
CLINICAL HISTORY: N20.0 - Calculus of kidney US Renal Comparison: [id number] Findings: Right kidney normal size and echotexture, 11.8 cm length. Left kidney normal size and echotexture, 10.9 cm length. There is a 7 mm right renal parenchymal calculus. No hydronephrosis of either kidney. Normal color Doppler. IMPRESSION: 1. No acute findings. This document has been electronically signed by: Ricardo Mccoy MD on 10/01/2025 10:07:38
--- OUTSIDE RECORDS SUMMARY | 2025-09-30 11:07 | XMS_ITS | Clinical Summary ---
Author Organization [facility] Address [address] [place] [address] Phone Care Team Providers Care Pipe Foreman Name Role Phone Leslie Lomeli MD Primary [...] for your loved ones. For example, child and family therapist or elderly care for an older adult? [...] on file Sexual Orientation Not on file Last Filed Vital Signs Vital Sign Reading [...] Date/Time Associated Diagnosis Comments EXTERNAL XRAY REPORT 09/17/2025 EXTERNAL XRAY REPORT 09/17/2025 LIPID PANEL Routine 09/09/2013 from Last 3 Months or Most Recently Relevant to Health Maintenance Results * External Xray Report (09/17/2025) Only the most recent of2 resultswithin the [...] Most Recently Relevant to Health Maintenance Insurance [facility] Care Teams Pipe Foreman Relationship Specialty Start Date End Date Leslie Lomeli MD [address] [place] [address] PCP - General Internal Medicine 08/24/12
== END 2025-09-30 08:58 ==
LOC: HO.US 08:57
PROVIDERS: PCP Internal Medicine; Visit Provider Urology
DX: N20.0 Calculus of kidney (principal)
CPT/HCPCS: 76775

== ENCOUNTER → 2025-09-30 09:01 | Outpatient (BNV) | payer BC, SELFPAY | PROVIDERS: PCP Internal Medicine; Visit Provider Specialist | DX: N20.0 Calculus of kidney (principal) | CPT/HCPCS: 76775 ==